=== PATIENT | female | born 2000 | race American Indian/Alaskan Native ===

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

== ENCOUNTER 2021-01-16 16:53 | Inpatient (IN) | payer MEDICAID ==
[2021-01-16] MEDS ORDERED: FAMOTIDINE 20 MG/2 ML INJ IV ONE (18:22)
[2021-01-16] MEDS ORDERED: ONDANSETRON 4 MG/2 ML INJ IV ONE (18:22)
[2021-01-16] MEDS ORDERED: DICYCLOMINE 20 MG/2 ML INJ IM ONE (18:22)
[2021-01-16] MEDS ORDERED: SODIUM CHLORIDE 0.9% 1000 ML 1,000 ML IV ONE ×3 (18:22→19:07)
[2021-01-16 18:51] LABS: Basophils # (Auto) 0.1 K/mm3 (0.0-0.1); Basophils % (Auto) 0.5 % (0.0-1.8); Hematocrit 40.5 % (30.3-42.9); Hemoglobin 13.7 gm/dl (10.1-14.3); Lymphocytes # (Auto) 2.9 K/mm3 (1.2-5.4); Mean Corpuscular HGB Conc 34 % (30-34); Mean Corpuscular Volume 101 fl (79-97); Monocytes # (Auto) 0.8 K/mm3 (0.0-0.8); Platelet Count 464 K/mm3 (140-440); Red Blood Count 4.03 M/mm3 (3.65-5.03)
[2021-01-16] MEDS ORDERED: DEXTROSE 50% IN WATER (25GM) 50 ML SYRINGE IV PRN (19:07)
[2021-01-16 19:19] LABS: Calcium 9.9 mg/dL (8.4-10.2)
--- NOTE | 2021-01-16 19:45 | Emergency Department Report ---
ED N/V/D HPI - General Chief complaint: Abdominal Pain Stated complaint: HIGH BLOOD SUGAR Time Seen by Provider: 01/16/21 18:20 Source: patient Mode of arrival: Stretcher Limitations: No Limitations - History of Present Illness Initial comments: Patient is a 20-year-old F [place] female with past medical history of insulin- dependent diabetes who is presenting with likely DKA. Patient states that she has not been taking her insulin as prescribed. States for the last 24 hours she is had fatigue nausea vomiting and abdominal cramps. Patient has vomited multiple times. Blood sugar read high at home. Denies any cough cold congestion fevers or chills. Patient has been in DKA before - Related Data Home Medications Medication Instructions Recorded Confirmed Last Taken Insulin Aspart Protam & Aspart 25 units SQ QPM 02/02/19 02/02/19 02/02/19 [NovoLOG Mix 70-30 Flexpen] Insulin Lispro Protamin/Lispro 34 units SQ QAM 02/02/19 02/02/19 02/01/19 [HumaLOG Mix 75-25 Kwikpen] lisinopriL [Zestril TAB] 10 mg PO QDAY 02/02/19 02/02/19 02/01/19 Allergies Allergy/AdvReac Type Severity Reaction Status Date / Time No Known Allergies Allergy Unverified 02/02/19 16:14 ED Review of Systems ROS: Stated complaint: HIGH BLOOD SUGAR Other details as noted in HPI Comment: All other systems reviewed and negative ED Past Medical Hx - Past Medical History Hx Hypertension: Yes Hx Diabetes: Yes Hx Asthma: No - Social History Smoking Status: Never Smoker - Medications Home Medications: Home Medications Medication Instructions Recorded Confirmed Last Taken Type Insulin Aspart Protam & Aspart 25 units SQ QPM 02/02/19 02/02/19 02/02/19 History [NovoLOG Mix 70-30 Flexpen] Insulin Lispro Protamin/Lispro 34 units SQ QAM 02/02/19 02/02/19 02/01/19 History [HumaLOG Mix 75-25 Kwikpen] lisinopriL [Zestril TAB] 10 mg PO QDAY 02/02/19 02/02/19 02/01/19 History ED Physical Exam - General Limitations: No Limitations General appearance: alert, other (Ill-appearing) - Head Head exam: Present: atraumatic, normocephalic - Eye Eye exam: Present: normal appearance, PERRL, EOMI - ENT ENT exam: Present: mucous membranes dry - Neck Neck exam: Present: normal inspection - Respiratory Respiratory exam: Present: normal lung sounds bilaterally. Absent: respiratory distress, wheezes, rales, rhonchi - Cardiovascular Cardiovascular Exam: Present: normal rhythm, tachycardia. Absent: systolic murmur, diastolic murmur, rubs, gallop - GI/Abdominal GI/Abdominal exam: Present: soft, tenderness (Epigastric), normal bowel sounds. Absent: distended, guarding, rebound, rigid - Extremities Exam Extremities exam: Present: normal inspection - Back Exam Back exam: Present: normal inspection - Neurological Exam Neurological exam: Present: alert, oriented X3 - Psychiatric Psychiatric exam: Present: normal affect, normal mood - Skin Skin exam: Present: warm, dry, intact, normal color. Absent: rash ED Course Vital Signs 01/16/21 01/16/21 01/16/21 17:34 18:03 18:28 Temperature 98.6 F 98.9 F 98.3 F Pulse Rate 126 H 129 H 132 H Respiratory 18 100 H 17 Rate Blood Pressure 134/88 120/80 136/92 [Left] O2 Sat by Pulse 99 100 Oximetry 01/16/21 19:32 Temperature Pulse Rate Respiratory 16 Rate Blood Pressure [Left] O2 Sat by Pulse 100 Oximetry ED Medical Decision Making - Lab Data Result diagrams: 01/16/21 18:28 01/16/21 18:28 Lab Results 01/16/21 01/16/21 01/16/21 Range/Units 17:30 18:12 18:28 WBC 13.0 H (4.5-11.0) K/mm3 RBC 4.03 (3.65-5.03) M/mm3 Hgb 13.7 (10.1-14.3) gm/dl Hct 40.5 (30.3-42.9) % MCV 101 H (79-97) fl MCH 34 H (28-32) pg MCHC 34 (30-34) % RDW 13.0 L (13.2-15.2) % Plt Count 464 H (140-440) K/mm3 Lymph % (Auto) 22.0 (13.4-35.0) % Yell % (Auto) 6.0 (0.0-7.3) % Eos % (Auto) 0.0 (0.0-4.3) % Baso % (Auto) 0.5 (0.0-1.8) % Lymph # (Auto) 2.9 (1.2-5.4) K/mm3 Yell # (Auto) 0.8 (0.0-0.8) K/mm3 Eos # (Auto) 0.0 (0.0-0.4) K/mm3 Baso # (Auto) 0.1 (0.0-0.1) K/mm3 Seg Neutrophils % 71.5 H (40.0-70.0) % Seg Neutrophils # 9.3 H (1.8-7.7) K/mm3 VBG pH (7.320-7.420) Sodium (137-145) mmol/L Potassium (3.6-5.0) mmol/L Chloride (98-107) mmol/L Carbon Dioxide (22-30) mmol/L Anion Gap mmol/L BUN (7-17) mg/dL Creatinine (0.6-1.2) mg/dL Estimated GFR ml/min BUN/Creatinine Ratio % Glucose (65-100) mg/dL POC Glucose 413 H 410 H (70-105) mg/dL Calcium (8.4-10.2) mg/dL Total Bilirubin (0.1-1.2) mg/dL AST (5-40) units/L ALT (7-56) units/L Alkaline Phosphatase (35-129) units/L Total Protein (6.3-8.2) g/dL Albumin (3.9-5) g/dL Albumin/Globulin Ratio % HCG, Qual (Negative) 01/16/21 01/16/21 01/16/21 Range/Units 18:28 18:28 18:28 WBC (4.5-11.0) K/mm3 RBC (3.65-5.03) M/mm3 Hgb (10.1-14.3) gm/dl Hct (30.3-42.9) % MCV (79-97) fl MCH (28-32) pg MCHC (30-34) % RDW (13.2-15.2) % Plt Count (140-440) K/mm3 Lymph % (Auto) (13.4-35.0) % Yell % (Auto) (0.0-7.3) % Eos % (Auto) (0.0-4.3) % Baso % (Auto) (0.0-1.8) % Lymph # (Auto) (1.2-5.4) K/mm3 Yell # (Auto) (0.0-0.8) K/mm3 Eos # (Auto) (0.0-0.4) K/mm3 Baso # (Auto) (0.0-0.1) K/mm3 Seg Neutrophils % (40.0-70.0) % Seg Neutrophils # (1.8-7.7) K/mm3 VBG pH 7.187 L* (7.320-7.420) Sodium 140 (137-145) mmol/L Potassium 5.8 H (3.6-5.0) mmol/L Chloride 100.4 (98-107) mmol/L Carbon Dioxide 7 L* (22-30) mmol/L Anion Gap 38 mmol/L BUN 26 H (7-17) mg/dL Creatinine 1.5 H (0.6-1.2) mg/dL Estimated GFR 54 ml/min BUN/Creatinine Ratio 17 % Glucose 450 H (65-100) mg/dL POC Glucose (70-105) mg/dL Calcium 9.9 (8.4-10.2) mg/dL Total Bilirubin 0.30 (0.1-1.2) mg/dL AST 11 (5-40) units/L ALT 17 (7-56) units/L Alkaline Phosphatase 101 (35-129) units/L Total Protein 9.0 H (6.3-8.2) g/dL Albumin 4.0 (3.9-5) g/dL Albumin/Globulin Ratio 0.8 % HCG, Qual Negative (Negative) - Medical Decision Making Patient is a 20-year-old F [place] female who is presenting with DKA. Patient has a bicarb of 7 and a pH of 7.18. Patient started on insulin drip and will be admitted to the ICU. In the emergency department 3 L of IV fluids have been ordered initially. Critical Care Time: Yes (30) Critical care attestation.: If time is entered above; I have spent that time in minutes in the direct care of this critically ill patient, excluding procedure time. ED Disposition Clinical Impression: DKA (diabetic ketoacidoses) Disposition: 09 ADMITTED INPATIENT Is pt being admited?: Yes Does the pt Need Aspirin: No Condition: Stable Instructions: Abdominal Pain (ED), Diabetic Ketoacidosis (ED) Time of Disposition: 19:48
[2021-01-16 19:57] LABS: Calcium 9.7 mg/dL (8.4-10.2)
[2021-01-16] MEDS ORDERED: INSULIN REGULAR, HUMAN 100 UNITS in SODIUM CHLORIDE 0.9% 99 ML IV SCH ×2 (20:00→22:00)
[2021-01-16] MEDS ORDERED: SODIUM CHLORIDE 0.9% 1000 ML 1,000 ML IV SCH (20:00)
[2021-01-16 20:19] LABS: Bilirubin,Urine NEG (Negative); Blood,Urine MOD (Negative); Color,Urine Straw (Yellow); Hyaline Casts,Urine 1 /LPF; Mucus,Urine FEW /HPF; Urobilinogen,Urine < 2.0 mg/dL (<2.0)
[2021-01-16] MEDS ORDERED: MORPHINE 2 MG/1 ML INJ IV PRN (21:32)
[2021-01-16] MEDS ORDERED: ACETAMINOPHEN 325 MG TAB PO PRN (21:32)
[2021-01-16] MEDS ORDERED: ONDANSETRON 4 MG/2 ML INJ IV PRN (21:32)
[2021-01-16] MEDS ORDERED: HYDROmorphone 1 MG/1 ML INJ IV PRN (21:32)
[2021-01-16] MEDS ORDERED: METOCLOPRAMIDE 10 MG/2 ML INJ IV PRN (21:32)
[2021-01-16] MEDS ORDERED: POTASSIUM CHLORIDE 10 MEQ 10 MEQ/100 ML BAG IV SCH ×2 (22:00)
[2021-01-16] MEDS ORDERED: D5W/0.45% NACL/KCL 20 MEQ 20 MEQ/1,000 ML BAG IV SCH (22:00)
[2021-01-16] MEDS ORDERED: FAMOTIDINE 20 MG/2 ML INJ IV SCH (22:00)
[2021-01-17 00:44] LABS: BUN/Creatinine Ratio 17; Blood Urea Nitrogen 22 mg/dL (7-17); Calcium 9.3 mg/dL (8.4-10.2); Hemolysis Index 5
[2021-01-17] MEDS ORDERED: D5W/0.45% NACL 1,000 ML IV ONE (03:33)
[2021-01-17] MEDS ORDERED: D5W/0.45% NACL 1,000 ML IV SCH (04:00)
[2021-01-17 05:49] LABS: BUN/Creatinine Ratio 15; Blood Urea Nitrogen 20 mg/dL (7-17); Calcium 9.4 mg/dL (8.4-10.2); Hemolysis Index 70
--- NOTE | 2021-01-17 05:59 | History and Physical Report ---
History of Present Illness Date of examination: 01/16/21 Date of admission: 01/16/21 19:49 Chief complaint: Nausea and vomiting for 2 days History of present illness: 20-year-old -German female with history of type 1 diabetes comes in for high blood glucose levels and nausea and vomiting. Also abdominal cramps. Patient has not been taking her insulin regularly. Patient is very poor historian. Slightly altered sensorium. No fever or chills. No dysuria. No exposure to Covid virus. - Past Medical History --Hypertension: Yes --Diabetes: Yes surgical history -No family history - Htn - Social History Smoking Status: Never Smoker - Medications Home Medications: Home Medications Medication Instructions Recorded Confirmed Last Taken Type Insulin Aspart Protam & Aspart 25 units SQ QPM 02/02/19 02/02/19 02/02/19 History [NovoLOG Mix 70-30 Flexpen] Insulin Lispro Protamin/Lispro 34 units SQ QAM 02/02/19 02/02/19 02/01/19 History [HumaLOG Mix 75-25 Kwikpen] lisinopriL [Zestril TAB] 10 mg PO QDAY 02/02/19 02/02/19 02/01/19 History Review of Systems ROS: Constitutional vomiting multiple times HEENT no sore throat no post nasal drip no diplopia Neck no neck stiffness no lymph gland enlargement Chest and lungs no shortness of breath cough or wheezing CVS no chest pain no diaphoresis no palpitations GI nausea and vomiting for 2 days, abdominal cramps Genitourinary system no dysuria no flank pain Musculoskeletal system no muscle pains no joint pains MEDICAL RECORDS COORDINATOR no syncope no seizures Skin no rash no itching Psychiatric no depression no homicidal or suicidal tendencies Hematologic no lymphedema or bruising Endocrine no polydipsia no polyuria no cold intolerance no heat intolerance Medications and Allergies Allergies Allergy/AdvReac Type Severity Reaction Status Date / Time No Known Allergies Allergy Unverified 02/02/19 16:14 Home Medications Medication Instructions Recorded Confirmed Last Taken Type Insulin Aspart Protam & Aspart 25 units SQ QPM 02/02/19 02/02/19 02/02/19 History [NovoLOG Mix 70-30 Flexpen] Insulin Lispro Protamin/Lispro 34 units SQ QAM 02/02/19 02/02/19 02/01/19 History [HumaLOG Mix 75-25 Kwikpen] lisinopriL [Zestril TAB] 10 mg PO QDAY 02/02/19 02/02/19 02/01/19 History Active Meds: Active Medications Acetaminophen (Acetaminophen 325 Mg Tab) 650 mg PO Q4H PRN PRN Reason: Pain MILD(1-3)/Fever >100.5/RODRIGUEZ Dextrose (Dextrose 50% In Water (25gm) 50 Ml Syringe) 0 ml IV Q30MIN PRN; Protocol PRN Reason: Hypoglycemia Famotidine (Famotidine 20 Mg/2 Ml Inj) 20 mg IV DAILY ANA Hydromorphone HCl (Hydromorphone 1 Mg/1 Ml Inj) 0.5 mg IV Q3H PRN PRN Reason: Pain , Severe (7-10) Sodium Chloride (Nacl 0.9% 1000 Ml) 1,000 mls @ 250 mls/hr IV DIRECT ANA Last Admin: 01/16/21 20:10 Dose: 250 mls/hr Documented by: Insulin Human Regular 100 (units/ Sodium Chloride) 100 mls @ 1 mls/hr IV TITR ANA; Protocol Last Titration: 01/17/21 05:10 Dose: 4 units/hr, 4 mls/hr Documented by: Dextrose/Sodium Chloride (D5/0.45ns) 1,000 mls @ 125 mls/hr IV DIRECT ANA Metoclopramide HCl (Metoclopramide 10 Mg/2 Ml Inj) 10 mg IV Q6H PRN PRN Reason: Nausea And Vomiting Morphine Sulfate (Morphine 2 Mg/1 Ml Inj) 2 mg IV Q4H PRN PRN Reason: Pain, Moderate (4-6) Last Admin: 01/17/21 05:11 Dose: 2 mg Documented by: Ondansetron HCl (Ondansetron 4 Mg/2 Ml Inj) 4 mg IV Q3H PRN PRN Reason: Nausea And Vomiting Sodium Chloride (Sodium Chloride 0.9% 10 Ml Flush Syringe) 10 ml IV BID ANA Sodium Chloride (Sodium Chloride 0.9% 10 Ml Flush Syringe) 10 ml IV PRN PRN PRN Reason: LINE FLUSH Exam - Constitutional Vitals: Temp Pulse Resp BP Pulse Ox 98.6 F 127 H 10 L 135/92 100 01/17/21 04:00 01/17/21 04:00 01/17/21 05:41 01/17/21 04:00 01/17/21 04:00 General appearance: Present: mild distress, well-nourished - EENT Eyes: Present: PERRL ENT: hearing intact, clear oral mucosa, other (Dry mucous membranes) - Neck Neck: Present: supple, normal ROM - Respiratory Respiratory effort: normal Respiratory: bilateral: CTA - Cardiovascular Heart rate: 78 Rhythm: regular Heart Sounds: Present: S1 & S2. Absent: rub, click - Extremities Extremities: no ischemia, pulses intact, pulses symmetrical, No edema Peripheral Pulses: within normal limits - Abdominal General gastrointestinal: Present: soft, non-tender, non-distended, normal bowel sounds Female genitourinary: Present: normal - Rectal Rectal Exam: deferred - Integumentary Integumentary: Present: clear, warm, dry - Musculoskeletal Musculoskeletal: gait normal, strength equal bilaterally - Psychiatric Psychiatric: appropriate mood/affect, intact judgment & insight - Neurologic Neurologic: CNII-XII intact, moves all extremities - Allied Health Allied health notes reviewed: nursing, case management Results - Labs CBC & Chem 7: 01/16/21 18:28 01/17/21 04:53 Labs: Laboratory Last Values WBC 13.0 K/mm3 (4.5-11.0) H 01/16/21 18:28 RBC 4.03 M/mm3 (3.65-5.03) 01/16/21 18:28 Hgb 13.7 gm/dl (10.1-14.3) 01/16/21 18:28 Hct 40.5 % (30.3-42.9) 01/16/21 18:28 MCV 101 fl (79-97) H 01/16/21 18:28 MCH 34 pg (28-32) H 01/16/21 18:28 MCHC 34 % (30-34) 01/16/21 18:28 RDW 13.0 % (13.2-15.2) L 01/16/21 18:28 Plt Count 464 K/mm3 (140-440) H 01/16/21 18:28 Lymph % (Auto) 22.0 % (13.4-35.0) 01/16/21 18:28 [place] % (Auto) 6.0 % (0.0-7.3) 01/16/21 18:28 Eos % (Auto) 0.0 % (0.0-4.3) 01/16/21 18:28 Baso % (Auto) 0.5 % (0.0-1.8) 01/16/21 18:28 Lymph # (Auto) 2.9 K/mm3 (1.2-5.4) 01/16/21 18:28 [place] # (Auto) 0.8 K/mm3 (0.0-0.8) 01/16/21 18:28 Eos # (Auto) 0.0 K/mm3 (0.0-0.4) 01/16/21 18:28 Baso # (Auto) 0.1 K/mm3 (0.0-0.1) 01/16/21 18:28 Seg Neutrophils % 71.5 % (40.0-70.0) H 01/16/21 18:28 Seg Neutrophils # 9.3 K/mm3 (1.8-7.7) H 01/16/21 18:28 VBG pH 7.187 (7.320-7.420) L* 01/16/21 18:28 Sodium 149 mmol/L (137-145) H 01/17/21 04:53 Potassium 4.4 mmol/L (3.6-5.0) 01/17/21 04:53 Chloride 115.1 mmol/L (98-107) H 01/17/21 04:53 Carbon Dioxide 14 mmol/L (22-30) L 01/17/21 04:53 Anion Gap 24 mmol/L 01/17/21 04:53 BUN 20 mg/dL (7-17) H 01/17/21 04:53 Creatinine 1.3 mg/dL (0.6-1.2) H 01/17/21 04:53 Estimated GFR > 60 ml/min 01/17/21 04:53 BUN/Creatinine Ratio 15 % 01/17/21 04:53 Glucose 202 mg/dL (65-100) H 01/17/21 04:53 POC Glucose 186 mg/dL (70-105) H 01/17/21 05:15 Hemoglobin A1c 18.1 % (4-6) H 01/16/21 23:16 Calcium 9.4 mg/dL (8.4-10.2) 01/17/21 04:53 Phosphorus 4.00 mg/dL (2.5-4.5) 01/16/21 23:16 Magnesium 2.40 mg/dL (1.7-2.3) H 01/16/21 23:16 Total Bilirubin 0.30 mg/dL (0.1-1.2) 01/16/21 18:28 AST 11 units/L (5-40) 01/16/21 18:28 ALT 17 units/L (7-56) 01/16/21 18:28 Alkaline Phosphatase 101 units/L (35-129) 01/16/21 18:28 Total Protein 9.0 g/dL (6.3-8.2) H 01/16/21 18:28 Albumin 4.0 g/dL (3.9-5) 01/16/21 18:28 Albumin/Globulin Ratio 0.8 % 01/16/21 18:28 HCG, Qual Negative (Negative) 01/16/21 18:28 Urine Color Straw (Yellow) 01/16/21 Unknown Urine Turbidity Clear (Clear) 01/16/21 Unknown Urine pH 5.0 (5.0-7.0) 01/16/21 Unknown Ur Specific [place] 1.018 (1.003-1.030) 01/16/21 Unknown Urine Protein 100 mg/dl mg/dL (Negative) 01/16/21 Unknown Urine Glucose (UA) >=500 mg/dL (Negative) 01/16/21 Unknown Urine Ketones 80 mg/dL (Negative) 01/16/21 Unknown Urine Blood Mod (Negative) 01/16/21 Unknown Urine Nitrite Neg (Negative) 01/16/21 Unknown Urine Bilirubin Neg (Negative) 01/16/21 Unknown Urine Urobilinogen < 2.0 mg/dL (<2.0) 01/16/21 Unknown Ur Leukocyte Esterase Neg (Negative) 01/16/21 Unknown Urine WBC (Auto) 7.0 /HPF (0.0-6.0) H 01/16/21 Unknown Urine RBC (Auto) 9.0 /HPF (0.0-6.0) 01/16/21 Unknown U Epithel Cells (Auto) 1.0 /HPF (0-13.0) 01/16/21 Unknown Hyaline Casts 1 /LPF 01/16/21 Unknown Urine Mucus Few /HPF 01/16/21 Unknown Urine Yeast (Budding) Few /HPF 01/16/21 Unknown Short CBC 01/16/21 Range/Units 18:28 WBC 13.0 H (4.5-11.0) K/mm3 Hgb 13.7 (10.1-14.3) gm/dl Hct 40.5 (30.3-42.9) % Plt Count 464 H (140-440) K/mm3 BMP 01/16/21 01/16/21 01/16/21 18:28 19:22 23:16 Sodium 140 143 145 Potassium 5.8 H 5.1 H 4.9 Chloride 100.4 103.3 107.1 H Carbon Dioxide 7 L* 7 L* 9 L* BUN 26 H 25 H 22 H Creatinine 1.5 H 1.5 H 1.3 H Glucose 450 H 424 H 357 H Calcium 9.9 9.7 9.3 01/17/21 04:53 Sodium 149 H Potassium 4.4 Chloride 115.1 H Carbon Dioxide 14 L BUN 20 H Creatinine 1.3 H Glucose 202 H Calcium 9.4 Liver Function 01/16/21 Range/Units 18:28 Total Bilirubin 0.30 (0.1-1.2) mg/dL AST 11 (5-40) units/L ALT 17 (7-56) units/L Alkaline Phosphatase 101 (35-129) units/L Albumin 4.0 (3.9-5) g/dL Urine 01/16/21 Range/Units Unknown Urine Color Straw (Yellow) Urine pH 5.0 (5.0-7.0) Ur Specific [place] 1.018 (1.003-1.030) Urine Protein 100 mg/dl (Negative) mg/dL Urine Glucose (UA) >=500 (Negative) mg/dL Assessment and Plan Assessment and plan: Critical care statement The high probability OF a clinically significant sudden or life-threatening deterioration of the cardiorespiratory system and endocrine system required my full and direct attention, intervention and postoperative management. The aggregate critical care time was 40 minutes. The time is in addition to time spent performing reported procedures but includes the followin: Data review and interpretation 2: Patient assessment and monitoring of vital signs 3: Documentation 4:: Medication orders and management Advance Directives: Yes (Full code) Plan of care discussed with patient/family: Yes - Patient Problems (1) DKA (diabetic ketoacidoses) Current Visit: Yes Status: Acute Qualifiers: Diabetes mellitus type: type 1 Diabetes mellitus complication detail: without coma Qualified Code(s): E10.10 - Type 1 diabetes mellitus with ketoacidosis without coma Plan to address problem: Patient initiated on DKA protocol IV insulin and IV fluids for now Dietitian consult for diet education Resume home insulin and then adjust insulin dosage (2) Metabolic acidosis Current Visit: Yes Status: Acute Plan to address problem: Severe Sodium bicarbonate intermittently (3) Hyperkalemia Current Visit: Yes Status: Acute Plan to address problem: Should correct with correction of blood glucose levels (4) WARREN (acute kidney injury) Current Visit: Yes Status: Acute Plan to address problem: Secondary to vasomotor nephropathy IV fluids for now Nephrology consult if necessary (5) DVT prophylaxis Current Visit: Yes Status: Acute Plan to address problem: On heparin and GI prophylaxis
--- NOTE | 2021-01-17 11:40 | Consultation ---
History of Present Illness - Reason for Consult Consult date: 01/17/21 DKA - History of Present Illness 20 yo female, followed by [facility] admitted with DKA. Hospitalized last year for the same thing but not here. Takes 75/25 50 in the morning and 40 at night. Per patient not sure what happened as she has been taking her medications. Per patient feels better but anion gap is still not closed. Also not hungry yet. Remainder is negative. Past History Past Medical History: diabetes Medications and Allergies Allergies Allergy/AdvReac Type Severity Reaction Status Date / Time No Known Allergies Allergy Unverified 02/02/19 16:14 Home Medications Medication Instructions Recorded Confirmed Last Taken Type Insulin Aspart Protam & Aspart 25 units SQ QPM 02/02/19 02/02/19 02/02/19 History [NovoLOG Mix 70-30 Flexpen] Insulin Lispro Protamin/Lispro 34 units SQ QAM 02/02/19 02/02/19 02/01/19 History [HumaLOG Mix 75-25 Kwikpen] lisinopriL [Zestril TAB] 10 mg PO QDAY 02/02/19 02/02/19 02/01/19 History Active Meds: Active Medications Acetaminophen (Acetaminophen 325 Mg Tab) 650 mg PO Q4H PRN PRN Reason: Pain MILD(1-3)/Fever >100.5/RODRIGUEZ Dextrose (Dextrose 50% In Water (25gm) 50 Ml Syringe) 0 ml IV Q30MIN PRN; Protocol PRN Reason: Hypoglycemia Famotidine (Famotidine 20 Mg/2 Ml Inj) 20 mg IV DAILY ANA Hydromorphone HCl (Hydromorphone 1 Mg/1 Ml Inj) 0.5 mg IV Q3H PRN PRN Reason: Pain , Severe (7-10) Sodium Chloride (Nacl 0.9% 1000 Ml) 1,000 mls @ 250 mls/hr IV DIRECT ANA Last Admin: 01/16/21 20:10 Dose: 250 mls/hr Documented by: Insulin Human Regular 100 (units/ Sodium Chloride) 100 mls @ 1 mls/hr IV TITR ANA; Protocol Last Titration: 01/17/21 10:11 Dose: 2 units/hr, 2 mls/hr Documented by: Dextrose/Sodium Chloride (D5/0.45ns) 1,000 mls @ 125 mls/hr IV DIRECT ANA Metoclopramide HCl (Metoclopramide 10 Mg/2 Ml Inj) 10 mg IV Q6H PRN PRN Reason: Nausea And Vomiting Morphine Sulfate (Morphine 2 Mg/1 Ml Inj) 2 mg IV Q4H PRN PRN Reason: Pain, Moderate (4-6) Last Admin: 01/17/21 05:11 Dose: 2 mg Documented by: Ondansetron HCl (Ondansetron 4 Mg/2 Ml Inj) 4 mg IV Q3H PRN PRN Reason: Nausea And Vomiting Sodium Chloride (Sodium Chloride 0.9% 10 Ml Flush Syringe) 10 ml IV BID ANA Sodium Chloride (Sodium Chloride 0.9% 10 Ml Flush Syringe) 10 ml IV PRN PRN PRN Reason: LINE FLUSH Review of Systems All systems: negative Exam - Constitutional Vitals: Temp Pulse Resp BP Pulse Ox 100.4 F H 116 H 9 L 139/95 100 01/17/21 07:56 01/17/21 09:00 01/17/21 09:00 01/17/21 09:00 01/17/21 09:00 General appearance: Present: no acute distress - EENT Eyes: Present: PERRL, EOM intact ENT: hearing intact, clear oral mucosa, dentition normal - Neck Neck: Present: supple, normal ROM - Respiratory Respiratory effort: normal Respiratory: bilateral: CTA - Cardiovascular Rhythm: regular Heart Sounds: Present: S1 & S2 - Extremities Extremities: no ischemia - Abdominal General gastrointestinal: Present: soft, non-tender, normal bowel sounds Results - Labs CBC & Chem 7: 01/16/21 18:28 01/17/21 04:53 Labs: Abnormal lab results 01/16/21 01/16/21 01/16/21 Range/Units 17:30 18:12 18:28 WBC 13.0 H (4.5-11.0) K/mm3 MCV 101 H (79-97) fl MCH 34 H (28-32) pg RDW 13.0 L (13.2-15.2) % Plt Count 464 H (140-440) K/mm3 Seg Neutrophils % 71.5 H (40.0-70.0) % Seg Neutrophils # 9.3 H (1.8-7.7) K/mm3 VBG pH (7.320-7.420) Sodium (137-145) mmol/L Potassium (3.6-5.0) mmol/L Chloride (98-107) mmol/L Carbon Dioxide (22-30) mmol/L BUN (7-17) mg/dL Creatinine (0.6-1.2) mg/dL Glucose (65-100) mg/dL POC Glucose 413 H 410 H (70-105) mg/dL Hemoglobin A1c (4-6) % Phosphorus (2.5-4.5) mg/dL Magnesium (1.7-2.3) mg/dL Total Protein (6.3-8.2) g/dL Urine WBC (Auto) (0.0-6.0) /HPF 01/16/21 01/16/21 01/16/21 Range/Units 18:28 18:28 19:22 WBC (4.5-11.0) K/mm3 MCV (79-97) fl MCH (28-32) pg RDW (13.2-15.2) % Plt Count (140-440) K/mm3 Seg Neutrophils % (40.0-70.0) % Seg Neutrophils # (1.8-7.7) K/mm3 VBG pH 7.187 L* (7.320-7.420) Sodium (137-145) mmol/L Potassium 5.8 H (3.6-5.0) mmol/L Chloride (98-107) mmol/L Carbon Dioxide 7 L* (22-30) mmol/L BUN 26 H (7-17) mg/dL Creatinine 1.5 H (0.6-1.2) mg/dL Glucose 450 H (65-100) mg/dL POC Glucose (70-105) mg/dL Hemoglobin A1c (4-6) % Phosphorus 4.70 H (2.5-4.5) mg/dL Magnesium 2.40 H (1.7-2.3) mg/dL Total Protein 9.0 H (6.3-8.2) g/dL Urine WBC (Auto) (0.0-6.0) /HPF 01/16/21 01/16/21 01/16/21 Range/Units 19:22 20:09 21:11 WBC (4.5-11.0) K/mm3 MCV (79-97) fl MCH (28-32) pg RDW (13.2-15.2) % Plt Count (140-440) K/mm3 Seg Neutrophils % (40.0-70.0) % Seg Neutrophils # (1.8-7.7) K/mm3 VBG pH (7.320-7.420) Sodium (137-145) mmol/L Potassium 5.1 H (3.6-5.0) mmol/L Chloride (98-107) mmol/L Carbon Dioxide 7 L* (22-30) mmol/L BUN 25 H (7-17) mg/dL Creatinine 1.5 H (0.6-1.2) mg/dL Glucose 424 H (65-100) mg/dL POC Glucose 367 H 367 H (70-105) mg/dL Hemoglobin A1c (4-6) % Phosphorus (2.5-4.5) mg/dL Magnesium (1.7-2.3) mg/dL Total Protein (6.3-8.2) g/dL Urine WBC (Auto) (0.0-6.0) /HPF 01/16/21 01/16/21 01/16/21 Range/Units 22:39 23:16 23:16 WBC (4.5-11.0) K/mm3 MCV (79-97) fl MCH (28-32) pg RDW (13.2-15.2) % Plt Count (140-440) K/mm3 Seg Neutrophils % (40.0-70.0) % Seg Neutrophils # (1.8-7.7) K/mm3 VBG pH (7.320-7.420) Sodium (137-145) mmol/L Potassium (3.6-5.0) mmol/L Chloride 107.1 H (98-107) mmol/L Carbon Dioxide 9 L* (22-30) mmol/L BUN 22 H (7-17) mg/dL Creatinine 1.3 H (0.6-1.2) mg/dL Glucose 357 H (65-100) mg/dL POC Glucose 332 H (70-105) mg/dL Hemoglobin A1c 18.1 H (4-6) % Phosphorus (2.5-4.5) mg/dL Magnesium (1.7-2.3) mg/dL Total Protein (6.3-8.2) g/dL Urine WBC (Auto) (0.0-6.0) /HPF 01/16/21 01/16/21 01/16/21 Range/Units 23:16 23:28 Unknown WBC (4.5-11.0) K/mm3 MCV (79-97) fl MCH (28-32) pg RDW (13.2-15.2) % Plt Count (140-440) K/mm3 Seg Neutrophils % (40.0-70.0) % Seg Neutrophils # (1.8-7.7) K/mm3 VBG pH (7.320-7.420) Sodium (137-145) mmol/L Potassium (3.6-5.0) mmol/L Chloride (98-107) mmol/L Carbon Dioxide (22-30) mmol/L BUN (7-17) mg/dL Creatinine (0.6-1.2) mg/dL Glucose (65-100) mg/dL POC Glucose 361 H (70-105) mg/dL Hemoglobin A1c (4-6) % Phosphorus (2.5-4.5) mg/dL Magnesium 2.40 H (1.7-2.3) mg/dL Total Protein (6.3-8.2) g/dL Urine WBC (Auto) 7.0 H (0.0-6.0) /HPF 01/17/21 01/17/21 01/17/21 Range/Units 00:08 01:22 02:21 WBC (4.5-11.0) K/mm3 MCV (79-97) fl MCH (28-32) pg RDW (13.2-15.2) % Plt Count (140-440) K/mm3 Seg Neutrophils % (40.0-70.0) % Seg Neutrophils # (1.8-7.7) K/mm3 VBG pH (7.320-7.420) Sodium (137-145) mmol/L Potassium (3.6-5.0) mmol/L Chloride (98-107) mmol/L Carbon Dioxide (22-30) mmol/L BUN (7-17) mg/dL Creatinine (0.6-1.2) mg/dL Glucose (65-100) mg/dL POC Glucose 353 H 274 H 241 H (70-105) mg/dL Hemoglobin A1c (4-6) % Phosphorus (2.5-4.5) mg/dL Magnesium (1.7-2.3) mg/dL Total Protein (6.3-8.2) g/dL Urine WBC (Auto) (0.0-6.0) /HPF 01/17/21 01/17/21 01/17/21 Range/Units 03:06 04:21 04:53 WBC (4.5-11.0) K/mm3 MCV (79-97) fl MCH (28-32) pg RDW (13.2-15.2) % Plt Count (140-440) K/mm3 Seg Neutrophils % (40.0-70.0) % Seg Neutrophils # (1.8-7.7) K/mm3 VBG pH (7.320-7.420) Sodium 149 H (137-145) mmol/L Potassium (3.6-5.0) mmol/L Chloride 115.1 H (98-107) mmol/L Carbon Dioxide 14 L (22-30) mmol/L BUN 20 H (7-17) mg/dL Creatinine 1.3 H (0.6-1.2) mg/dL Glucose 202 H (65-100) mg/dL POC Glucose 240 H 201 H (70-105) mg/dL Hemoglobin A1c (4-6) % Phosphorus (2.5-4.5) mg/dL Magnesium (1.7-2.3) mg/dL Total Protein (6.3-8.2) g/dL Urine WBC (Auto) (0.0-6.0) /HPF 01/17/21 01/17/21 01/17/21 Range/Units 05:15 06:07 07:21 WBC (4.5-11.0) K/mm3 MCV (79-97) fl MCH (28-32) pg RDW (13.2-15.2) % Plt Count (140-440) K/mm3 Seg Neutrophils % (40.0-70.0) % Seg Neutrophils # (1.8-7.7) K/mm3 VBG pH (7.320-7.420) Sodium (137-145) mmol/L Potassium (3.6-5.0) mmol/L Chloride (98-107) mmol/L Carbon Dioxide (22-30) mmol/L BUN (7-17) mg/dL Creatinine (0.6-1.2) mg/dL Glucose (65-100) mg/dL POC Glucose 186 H 167 H 165 H (70-105) mg/dL Hemoglobin A1c (4-6) % Phosphorus (2.5-4.5) mg/dL Magnesium (1.7-2.3) mg/dL Total Protein (6.3-8.2) g/dL Urine WBC (Auto) (0.0-6.0) /HPF 01/17/21 01/17/21 01/17/21 Range/Units 08:04 09:08 10:03 WBC (4.5-11.0) K/mm3 MCV (79-97) fl MCH (28-32) pg RDW (13.2-15.2) % Plt Count (140-440) K/mm3 Seg Neutrophils % (40.0-70.0) % Seg Neutrophils # (1.8-7.7) K/mm3 VBG pH (7.320-7.420) Sodium (137-145) mmol/L Potassium (3.6-5.0) mmol/L Chloride (98-107) mmol/L Carbon Dioxide (22-30) mmol/L BUN (7-17) mg/dL Creatinine (0.6-1.2) mg/dL Glucose (65-100) mg/dL POC Glucose 161 H 153 H 133 H (70-105) mg/dL Hemoglobin A1c (4-6) % Phosphorus (2.5-4.5) mg/dL Magnesium (1.7-2.3) mg/dL Total Protein (6.3-8.2) g/dL Urine WBC (Auto) (0.0-6.0) /HPF 01/17/21 Range/Units 11:14 WBC (4.5-11.0) K/mm3 MCV (79-97) fl MCH (28-32) pg RDW (13.2-15.2) % Plt Count (140-440) K/mm3 Seg Neutrophils % (40.0-70.0) % Seg Neutrophils # (1.8-7.7) K/mm3 VBG pH (7.320-7.420) Sodium (137-145) mmol/L Potassium (3.6-5.0) mmol/L Chloride (98-107) mmol/L Carbon Dioxide (22-30) mmol/L BUN (7-17) mg/dL Creatinine (0.6-1.2) mg/dL Glucose (65-100) mg/dL POC Glucose 142 H (70-105) mg/dL Hemoglobin A1c (4-6) % Phosphorus (2.5-4.5) mg/dL Magnesium (1.7-2.3) mg/dL Total Protein (6.3-8.2) g/dL Urine WBC (Auto) (0.0-6.0) /HPF Assessment and Plan 20 y/o female with DKA and presumptive acute renal failure. 1. q6 hour BMP's until Anion Gap closes 2. WIll change fluids to D5 with K at same rate now that sugar is less than 250 3. Continue NPO status 4. Follow up renal function 5. negative, UA does have yeast. Consider Diflucan 150 PO x2 doses, may have been cause of DKA 6. Will continue to follow as long as in unit on insulin drip. Once gap closes and can eat, administer long acting insulin and then stop insulin infusion CCt 31 minutes.
[2021-01-17] MEDS: FAMOTIDINE 20 MG/2 ML INJ IV SCH (12:54)
[2021-01-17] MEDS ORDERED: POTASSIUM CHLORIDE 20 MEQ in DEXTROSE 5% IN WATER 1,000 ML IV SCH (13:00)
[2021-01-17 13:04] LABS: BUN/Creatinine Ratio 16; Blood Urea Nitrogen 18 mg/dL (7-17); Calcium 9.5 mg/dL (8.4-10.2); Hemolysis Index 13
--- NOTE | 2021-01-17 17:44 | Progress Note ---
Assessment and Plan (1) DKA (diabetic ketoacidoses) Current Visit: Yes Status: Acute Qualifiers: Diabetes mellitus type: type 1 Diabetes mellitus complication detail: without coma Qualified Code(s): E10.10 - Type 1 diabetes mellitus with ketoacidosis without coma Plan to address problem: Patient initiated on DKA protocol IV insulin and IV fluids for now Dietitian consult for diet education Resume home insulin and then adjust insulin dosage (2) Metabolic acidosis Current Visit: Yes Status: Acute Plan to address problem: Severe Sodium bicarbonate intermittently (3) Hyperkalemia Current Visit: Yes Status: Acute Plan to address problem: Should correct with correction of blood glucose levels (4) WARREN (acute kidney injury) Current Visit: Yes Status: Acute Plan to address problem: Secondary to vasomotor nephropathy IV fluids for now Nephrology consult if necessary (5) DVT prophylaxis Current Visit: Yes Status: Acute Plan to address problem: On heparin and GI prophylaxis 01/17/21: Monitor q6 hour BMP's until Anion Gap closes, WIll change fluids to D5 with K at same rate now that sugar is less than 250. Once gap closes and can eat, will administer long acting insulin and then stop insulin infusion. follow clinically Subjective Date of service: 01/17/21 Interval history: Patient seen and examined. Medical records and medication list reviewed. No acute event overnight noted by the RN. Patient denies any chest pain or difficulty breathing. Discussed plan of care at bedside with patient. Objective - Constitutional Vitals: Vital Signs - 12hr 01/17/21 01/17/21 01/17/21 06:00 07:00 07:56 Temperature 100.4 F H Pulse Rate 120 H 114 H Pulse Rate [ From Monitor] Respiratory 10 L 12 Rate Blood Pressure 127/82 129/88 O2 Sat by Pulse 100 100 Oximetry 01/17/21 01/17/21 01/17/21 08:00 09:00 10:00 Temperature Pulse Rate 118 H 116 H 111 H Pulse Rate [ 108 H From Monitor] Respiratory 11 L 9 L 10 L Rate Blood Pressure 136/97 139/95 152/95 O2 Sat by Pulse 100 100 100 Oximetry 01/17/21 01/17/21 01/17/21 11:00 12:00 13:00 Temperature 98.2 F Pulse Rate 112 H 108 H 113 H Pulse Rate [ From Monitor] Respiratory 9 L 13 11 L Rate Blood Pressure 131/77 126/85 O2 Sat by Pulse 100 100 100 Oximetry 01/17/21 01/17/21 01/17/21 14:00 15:00 16:00 Temperature Pulse Rate 115 H Pulse Rate [ From Monitor] Respiratory 7 L Rate Blood Pressure 143/93 125/79 141/92 O2 Sat by Pulse 100 98 100 Oximetry 01/17/21 01/17/21 16:15 17:38 Temperature 98.0 F Pulse Rate Pulse Rate [ 108 H From Monitor] Respiratory Rate Blood Pressure O2 Sat by Pulse 100 Oximetry General appearance: Present: no acute distress - EENT Eyes: PERRL, EOM intact ENT: hearing intact, clear oral mucosa Ears: bilateral: normal - Neck Neck: supple, normal ROM - Respiratory Respiratory effort: normal Respiratory: bilateral: CTA - Cardiovascular Rhythm: regular Heart Sounds: Present: S1 & S2. Absent: gallop, rub Extremities: pulses intact, No edema, normal color, Full ROM - Gastrointestinal General gastrointestinal: Present: soft, non-tender, non-distended, normal bowel sounds - Integumentary Integumentary: clear, warm, dry - Musculoskeletal Musculoskeletal: 1, strength equal bilaterally - Neurologic Neurologic: moves all extremities - Psychiatric Psychiatric: memory intact, appropriate mood/affect, intact judgment & insight - Labs CBC & Chem 7: 01/16/21 18:28 01/17/21 23:17 Labs: Abnormal lab results 01/16/21 01/16/21 01/16/21 Range/Units 17:30 18:12 18:28 WBC 13.0 H (4.5-11.0) K/mm3 MCV 101 H (79-97) fl MCH 34 H (28-32) pg RDW 13.0 L (13.2-15.2) % Plt Count 464 H (140-440) K/mm3 Seg Neutrophils % 71.5 H (40.0-70.0) % Seg Neutrophils # 9.3 H (1.8-7.7) K/mm3 VBG pH (7.320-7.420) Sodium (137-145) mmol/L Potassium (3.6-5.0) mmol/L Chloride (98-107) mmol/L Carbon Dioxide (22-30) mmol/L BUN (7-17) mg/dL Creatinine (0.6-1.2) mg/dL Glucose (65-100) mg/dL POC Glucose 413 H 410 H (70-105) mg/dL Hemoglobin A1c (4-6) % Phosphorus (2.5-4.5) mg/dL Magnesium (1.7-2.3) mg/dL Total Protein (6.3-8.2) g/dL Urine WBC (Auto) (0.0-6.0) /HPF 01/16/21 01/16/21 01/16/21 Range/Units 18:28 18:28 19:22 WBC (4.5-11.0) K/mm3 MCV (79-97) fl MCH (28-32) pg RDW (13.2-15.2) % Plt Count (140-440) K/mm3 Seg Neutrophils % (40.0-70.0) % Seg Neutrophils # (1.8-7.7) K/mm3 VBG pH 7.187 L* (7.320-7.420) Sodium (137-145) mmol/L Potassium 5.8 H (3.6-5.0) mmol/L Chloride (98-107) mmol/L Carbon Dioxide 7 L* (22-30) mmol/L BUN 26 H (7-17) mg/dL Creatinine 1.5 H (0.6-1.2) mg/dL Glucose 450 H (65-100) mg/dL POC Glucose (70-105) mg/dL Hemoglobin A1c (4-6) % Phosphorus 4.70 H (2.5-4.5) mg/dL Magnesium 2.40 H (1.7-2.3) mg/dL Total Protein 9.0 H (6.3-8.2) g/dL Urine WBC (Auto) (0.0-6.0) /HPF 01/16/21 01/16/21 01/16/21 Range/Units 19:22 20:09 21:11 WBC (4.5-11.0) K/mm3 MCV (79-97) fl MCH (28-32) pg RDW (13.2-15.2) % Plt Count (140-440) K/mm3 Seg Neutrophils % (40.0-70.0) % Seg Neutrophils # (1.8-7.7) K/mm3 VBG pH (7.320-7.420) Sodium (137-145) mmol/L Potassium 5.1 H (3.6-5.0) mmol/L Chloride (98-107) mmol/L Carbon Dioxide 7 L* (22-30) mmol/L BUN 25 H (7-17) mg/dL Creatinine 1.5 H (0.6-1.2) mg/dL Glucose 424 H (65-100) mg/dL POC Glucose 367 H 367 H (70-105) mg/dL Hemoglobin A1c (4-6) % Phosphorus (2.5-4.5) mg/dL Magnesium (1.7-2.3) mg/dL Total Protein (6.3-8.2) g/dL Urine WBC (Auto) (0.0-6.0) /HPF 01/16/21 01/16/21 01/16/21 Range/Units 22:39 23:16 23:16 WBC (4.5-11.0) K/mm3 MCV (79-97) fl MCH (28-32) pg RDW (13.2-15.2) % Plt Count (140-440) K/mm3 Seg Neutrophils % (40.0-70.0) % Seg Neutrophils # (1.8-7.7) K/mm3 VBG pH (7.320-7.420) Sodium (137-145) mmol/L Potassium (3.6-5.0) mmol/L Chloride 107.1 H (98-107) mmol/L Carbon Dioxide 9 L* (22-30) mmol/L BUN 22 H (7-17) mg/dL Creatinine 1.3 H (0.6-1.2) mg/dL Glucose 357 H (65-100) mg/dL POC Glucose 332 H (70-105) mg/dL Hemoglobin A1c 18.1 H (4-6) % Phosphorus (2.5-4.5) mg/dL Magnesium (1.7-2.3) mg/dL Total Protein (6.3-8.2) g/dL Urine WBC (Auto) (0.0-6.0) /HPF 01/16/21 01/16/21 01/16/21 Range/Units 23:16 23:28 Unknown WBC (4.5-11.0) K/mm3 MCV (79-97) fl MCH (28-32) pg RDW (13.2-15.2) % Plt Count (140-440) K/mm3 Seg Neutrophils % (40.0-70.0) % Seg Neutrophils # (1.8-7.7) K/mm3 VBG pH (7.320-7.420) Sodium (137-145) mmol/L Potassium (3.6-5.0) mmol/L Chloride (98-107) mmol/L Carbon Dioxide (22-30) mmol/L BUN (7-17) mg/dL Creatinine (0.6-1.2) mg/dL Glucose (65-100) mg/dL POC Glucose 361 H (70-105) mg/dL Hemoglobin A1c (4-6) % Phosphorus (2.5-4.5) mg/dL Magnesium 2.40 H (1.7-2.3) mg/dL Total Protein (6.3-8.2) g/dL Urine WBC (Auto) 7.0 H (0.0-6.0) /HPF 01/17/21 01/17/21 01/17/21 Range/Units 00:08 01:22 02:21 WBC (4.5-11.0) K/mm3 MCV (79-97) fl MCH (28-32) pg RDW (13.2-15.2) % Plt Count (140-440) K/mm3 Seg Neutrophils % (40.0-70.0) % Seg Neutrophils # (1.8-7.7) K/mm3 VBG pH (7.320-7.420) Sodium (137-145) mmol/L Potassium (3.6-5.0) mmol/L Chloride (98-107) mmol/L Carbon Dioxide (22-30) mmol/L BUN (7-17) mg/dL Creatinine (0.6-1.2) mg/dL Glucose (65-100) mg/dL POC Glucose 353 H 274 H 241 H (70-105) mg/dL Hemoglobin A1c (4-6) % Phosphorus (2.5-4.5) mg/dL Magnesium (1.7-2.3) mg/dL Total Protein (6.3-8.2) g/dL Urine WBC (Auto) (0.0-6.0) /HPF 01/17/21 01/17/21 01/17/21 Range/Units 03:06 04:21 04:53 WBC (4.5-11.0) K/mm3 MCV (79-97) fl MCH (28-32) pg RDW (13.2-15.2) % Plt Count (140-440) K/mm3 Seg Neutrophils % (40.0-70.0) % Seg Neutrophils # (1.8-7.7) K/mm3 VBG pH (7.320-7.420) Sodium 149 H (137-145) mmol/L Potassium (3.6-5.0) mmol/L Chloride 115.1 H (98-107) mmol/L Carbon Dioxide 14 L (22-30) mmol/L BUN 20 H (7-17) mg/dL Creatinine 1.3 H (0.6-1.2) mg/dL Glucose 202 H (65-100) mg/dL POC Glucose 240 H 201 H (70-105) mg/dL Hemoglobin A1c (4-6) % Phosphorus (2.5-4.5) mg/dL Magnesium (1.7-2.3) mg/dL Total Protein (6.3-8.2) g/dL Urine WBC (Auto) (0.0-6.0) /HPF 01/17/21 01/17/21 01/17/21 Range/Units 05:15 06:07 07:21 WBC (4.5-11.0) K/mm3 MCV (79-97) fl MCH (28-32) pg RDW (13.2-15.2) % Plt Count (140-440) K/mm3 Seg Neutrophils % (40.0-70.0) % Seg Neutrophils # (1.8-7.7) K/mm3 VBG pH (7.320-7.420) Sodium (137-145) mmol/L Potassium (3.6-5.0) mmol/L Chloride (98-107) mmol/L Carbon Dioxide (22-30) mmol/L BUN (7-17) mg/dL Creatinine (0.6-1.2) mg/dL Glucose (65-100) mg/dL POC Glucose 186 H 167 H 165 H (70-105) mg/dL Hemoglobin A1c (4-6) % Phosphorus (2.5-4.5) mg/dL Magnesium (1.7-2.3) mg/dL Total Protein (6.3-8.2) g/dL Urine WBC (Auto) (0.0-6.0) /HPF 01/17/21 01/17/21 01/17/21 Range/Units 08:04 09:08 10:03 WBC (4.5-11.0) K/mm3 MCV (79-97) fl MCH (28-32) pg RDW (13.2-15.2) % Plt Count (140-440) K/mm3 Seg Neutrophils % (40.0-70.0) % Seg Neutrophils # (1.8-7.7) K/mm3 VBG pH (7.320-7.420) Sodium (137-145) mmol/L Potassium (3.6-5.0) mmol/L Chloride (98-107) mmol/L Carbon Dioxide (22-30) mmol/L BUN (7-17) mg/dL Creatinine (0.6-1.2) mg/dL Glucose (65-100) mg/dL POC Glucose 161 H 153 H 133 H (70-105) mg/dL Hemoglobin A1c (4-6) % Phosphorus (2.5-4.5) mg/dL Magnesium (1.7-2.3) mg/dL Total Protein (6.3-8.2) g/dL Urine WBC (Auto) (0.0-6.0) /HPF 01/17/21 01/17/21 01/17/21 Range/Units 11:14 11:49 12:24 WBC (4.5-11.0) K/mm3 MCV (79-97) fl MCH (28-32) pg RDW (13.2-15.2) % Plt Count (140-440) K/mm3 Seg Neutrophils % (40.0-70.0) % Seg Neutrophils # (1.8-7.7) K/mm3 VBG pH (7.320-7.420) Sodium 147 H (137-145) mmol/L Potassium (3.6-5.0) mmol/L Chloride 117.0 H (98-107) mmol/L Carbon Dioxide 15 L (22-30) mmol/L BUN 18 H (7-17) mg/dL Creatinine (0.6-1.2) mg/dL Glucose 153 H (65-100) mg/dL POC Glucose 142 H 146 H (70-105) mg/dL Hemoglobin A1c (4-6) % Phosphorus (2.5-4.5) mg/dL Magnesium (1.7-2.3) mg/dL Total Protein (6.3-8.2) g/dL Urine WBC (Auto) (0.0-6.0) /HPF 01/17/21 01/17/21 01/17/21 Range/Units 14:00 14:20 16:04 WBC (4.5-11.0) K/mm3 MCV (79-97) fl MCH (28-32) pg RDW (13.2-15.2) % Plt Count (140-440) K/mm3 Seg Neutrophils % (40.0-70.0) % Seg Neutrophils # (1.8-7.7) K/mm3 VBG pH (7.320-7.420) Sodium (137-145) mmol/L Potassium (3.6-5.0) mmol/L Chloride (98-107) mmol/L Carbon Dioxide (22-30) mmol/L BUN (7-17) mg/dL Creatinine (0.6-1.2) mg/dL Glucose (65-100) mg/dL POC Glucose 133 H 118 H 145 H (70-105) mg/dL Hemoglobin A1c (4-6) % Phosphorus (2.5-4.5) mg/dL Magnesium (1.7-2.3) mg/dL Total Protein (6.3-8.2) g/dL Urine WBC (Auto) (0.0-6.0) /HPF
[2021-01-17 19:25] LABS: BUN/Creatinine Ratio 14; Blood Urea Nitrogen 15 mg/dL (7-17); Calcium 9.2 mg/dL (8.4-10.2); Hemolysis Index 15
[2021-01-17] MEDS: INSULIN NPH/REGULAR 70/30 INJ SUB-Q SCH (22:22)
[2021-01-17 23:45] LABS: BUN/Creatinine Ratio 12; Blood Urea Nitrogen 13 mg/dL (7-17); Hemolysis Index 3
[2021-01-18] MEDS: INSULIN REGULAR, HUMAN 100 UNITS/1 ML SUB-Q SCH ×2 (00:19→05:30)
--- NOTE | 2021-01-18 08:14 | Discharge Summary ---
<SHERON ABRAHAM - Last Filed: 01/18/21 08:14> Providers - Providers Date of Admission: 01/16/21 19:49 Attending physician: SHERON ABRAHAM 01/16/21 19:45 Consult to Physician [CONS] Urgent Comment: Dr. Paiz spoke with Dr. Salgado @ 1944 Consulting Provider: VICKEY SALGADO Physician Instructions: Reason For Exam: ICU admission for DKA 01/16/21 21:34 Consult to Dietitian/Nutrition [CONS] Routine Physician Instructions: Reason For Exam: DKA Reason for Consult: Diet education Primary care physician: KILN REPAIRER Hospitalization Condition: Stable Disposition: 01 HOME / SELF CARE / HOMELESS Exam - Constitutional Vitals: Temp Pulse Resp BP Pulse Ox 98.6 F 102 H 13 114/79 100 01/18/21 07:57 01/18/21 07:00 01/18/21 07:00 01/18/21 07:00 01/18/21 04:00 Plan Follow up with: PRIMARY CAREMD [Primary Care Provider] - 7 Days <WARREN EASON - Last Filed: 04/15/21 19:18> Providers - Providers Date of Admission: 01/16/21 19:49 Attending physician: SHERON ABRAHAM 01/16/21 19:45 Consult to Physician [CONS] Urgent Comment: Dr. Paiz spoke with Dr. Salgado @ 1944 Consulting Provider: VICKEY SALGADO Physician Instructions: Reason For Exam: ICU admission for DKA 01/16/21 21:34 Consult to Dietitian/Nutrition [CONS] Routine Physician Instructions: Reason For Exam: DKA Reason for Consult: Diet education Primary care physician: KILN REPAIRER Exam - Constitutional Vitals: Temp Pulse Resp BP Pulse Ox 98.6 F 105 H 11 L 109/65 100 01/18/21 07:57 01/18/21 11:00 01/18/21 11:00 01/18/21 11:00 01/18/21 11:00
[2021-01-18] MEDS: INSULIN NPH/REGULAR 70/30 INJ SUB-Q SCH (09:32)
[2021-01-18] MEDS: FAMOTIDINE 20 MG/2 ML INJ IV SCH (09:32)
[2021-01-18 13:14] VITALS: BP 109/65
== END 2021-01-18 13:00 | disposition home or self-care (01) | DRG 637 ==
LOC: ED 16:53 → CC1 19:49
PROVIDERS: ADMIT Hospitalist; ATTEND Internal Medicine
DX: E10.10 Type 1 diabetes mellitus with ketoacidosis without coma (principal); N17.0 Acute kidney failure with tubular necrosis; I10 Essential (primary) hypertension; E87.5 Hyperkalemia; Z20.822 Contact with and (suspected) exposure to COVID-19
CPT/HCPCS: 36415; 80048; 80053; 81001; 82805; 82962; 83036; 83735; 84100; 84703; 85025; 87040; G0378; J7070; J0500; J1815; J2270; J2405; J3480; J7030

== ENCOUNTER 2021-09-23 15:31 | Inpatient (IN) | payer MEDICAID ==
[2021-09-23] MEDS ORDERED: SODIUM CHLORIDE 0.9% 1000 ML 1,000 ML IV ONE ×3 (15:56→17:41)
--- NOTE | 2021-09-23 16:00 | Emergency Department Report ---
ED General Adult HPI - General Chief complaint: Hyperglycemia Stated complaint: DKA Time Seen by Provider: 09/23/21 15:52 Source: patient, EMS Mode of arrival: Stretcher Limitations: No Limitations - History of Present Illness Initial comments: Patient presents to the emergency department via EMS for unresponsiveness. Patient was found by her family at home unresponsive. The family states the patient has a history of insulin-dependent diabetes and has not taken her insulin for at least the last 2 days. Per EMS patient's glucose was greater than 500/too high to read on their monitor. They state the patient denied any nausea or vomiting. Patient denies chest pain or shortness of breath. -: unknown Consistency: constant Improves with: none Worsens with: none Associated Symptoms: denies other symptoms Treatments Prior to Arrival: none - Related Data Home Medications Medication Instructions Recorded Confirmed Last Taken Insulin Aspart Protam & Aspart 25 units SQ QPM 02/02/19 02/02/19 02/02/19 [NovoLOG Mix 70-30 Flexpen] Insulin Lispro Protamin/Lispro 34 units SQ QAM 02/02/19 02/02/19 02/01/19 [HumaLOG Mix 75-25 Kwikpen] lisinopriL [Zestril TAB] 10 mg PO QDAY 02/02/19 02/02/19 02/01/19 Allergies Allergy/AdvReac Type Severity Reaction Status Date / Time No Known Allergies Allergy Verified 09/23/21 15:34 ED Review of Systems ROS: Stated complaint: DKA Other details as noted in HPI Comment: Unobtainable due to pts medical conditions ED Past Medical Hx - Past Medical History Hx Hypertension: Yes Hx Diabetes: Yes Hx Asthma: No - Social History Smoking Status: Never Smoker - Medications Home Medications: Home Medications Medication Instructions Recorded Confirmed Last Taken Type Insulin Aspart Protam & Aspart 25 units SQ QPM 02/02/19 02/02/19 02/02/19 History [NovoLOG Mix 70-30 Flexpen] Insulin Lispro Protamin/Lispro 34 units SQ QAM 02/02/19 02/02/19 02/01/19 History [HumaLOG Mix 75-25 Kwikpen] lisinopriL [Zestril TAB] 10 mg PO QDAY 02/02/19 02/02/19 02/01/19 History ED Physical Exam - General Limitations: No Limitations General appearance: obtunded, other (But arousable with verbal stimulation) - Head Head exam: Present: atraumatic, normocephalic - Eye Eye exam: Present: PERRL, EOMI - ENT ENT exam: Present: mucous membranes dry - Respiratory Respiratory exam: Present: normal lung sounds bilaterally, other (Kussmal respirations ). Absent: wheezes - Cardiovascular Cardiovascular Exam: Present: normal rhythm, tachycardia - GI/Abdominal GI/Abdominal exam: Present: soft, diminished bowel sounds. Absent: distended, tenderness - Extremities Exam Extremities exam: Present: normal inspection - Neurological Exam Neurological exam: Present: other (Patient is obtunded but easily arousable. Complete neurological exam cannot be done due to the patient's medical condition at time of presentation) - Psychiatric Psychiatric exam: Present: other (Not able to assess due to the patient's medical condition) ED Course Vital Signs 09/23/21 15:32 Pulse Rate 107 H Blood Pressure 113/70 [Left] O2 Sat by Pulse 99 Oximetry ED Medical Decision Making - Lab Data Result diagrams: 09/23/21 16:38 09/23/21 16:31 Lab Results 09/23/21 09/23/21 09/23/21 Range/Units 16:31 16:31 16:38 WBC 23.0 H (4.5-11.0) K/mm3 RBC 3.57 L (3.65-5.03) M/mm3 Hgb 11.0 (10.1-14.3) gm/dl Hct 36.7 (30.3-42.9) % MCV 103 H (79-97) fl MCH 31 (28-32) pg MCHC 30 (30-34) % RDW 14.1 (13.2-15.2) % Plt Count 377 (140-440) K/mm3 Sodium 127 L (137-145) mmol/L Potassium 7.5 H* (3.6-5.0) mmol/L Chloride 87.7 L (98-107) mmol/L Carbon Dioxide 2 L* (22-30) mmol/L Anion Gap 45 mmol/L BUN 41 H (7-17) mg/dL Creatinine 1.8 H (0.6-1.2) mg/dL Estimated GFR 43 ml/min BUN/Creatinine Ratio 23 % Lactic Acid 2.70 H* (0.7-2.0) mmol/L Calcium 9.3 (8.4-10.2) mg/dL Total Bilirubin 0.20 (0.1-1.2) mg/dL AST 14 (5-40) units/L ALT 8 (7-56) units/L Alkaline Phosphatase 162 H (35-129) units/L Total Protein 10.1 H (6.3-8.2) g/dL Albumin 3.5 L (3.9-5) g/dL Albumin/Globulin Ratio 0.5 % HCG, Quant (0-4) mIU/mL 09/23/21 Range/Units 16:38 WBC (4.5-11.0) K/mm3 RBC (3.65-5.03) M/mm3 Hgb (10.1-14.3) gm/dl Hct (30.3-42.9) % MCV (79-97) fl MCH (28-32) pg MCHC (30-34) % RDW (13.2-15.2) % Plt Count (140-440) K/mm3 Sodium (137-145) mmol/L Potassium (3.6-5.0) mmol/L Chloride (98-107) mmol/L Carbon Dioxide (22-30) mmol/L Anion Gap mmol/L BUN (7-17) mg/dL Creatinine (0.6-1.2) mg/dL Estimated GFR ml/min BUN/Creatinine Ratio % Lactic Acid (0.7-2.0) mmol/L Calcium (8.4-10.2) mg/dL Total Bilirubin (0.1-1.2) mg/dL AST (5-40) units/L ALT (7-56) units/L Alkaline Phosphatase (35-129) units/L Total Protein (6.3-8.2) g/dL Albumin (3.9-5) g/dL Albumin/Globulin Ratio % HCG, Quant < 2 (0-4) mIU/mL - Radiology Data Radiology results: report reviewed - Medical Decision Making 3 L IV fluid was initiated The patient's elevated potassium is likely secondary to elevated glucose levels Insulin drip initiated Insulin bolus given Patient has a white count of 23,000 and and lieu of blood cultures and lactic acid being obtained prophylactic antibiotics were initiated Patient is admitted to Dr. Montes Critical Care Time: Yes Critical care time in (mins) excluding proc time.: 35 Critical care attestation.: If time is entered above; I have spent that time in minutes in the direct care of this critically ill patient, excluding procedure time. ED Disposition Clinical Impression: DKA (diabetic ketoacidosis) Disposition: 09 ADMITTED INPATIENT Is pt being admited?: Yes Does the pt Need Aspirin: No Condition: Fair Instructions: Diabetic Ketoacidosis (ED)
[2021-09-23 17:17] LABS: Mean Corpuscular HGB Conc 30 % (30-34); Mean Corpuscular Volume 103 fl (79-97); Platelet Count 377 K/mm3 (140-440); Red Blood Count 3.57 M/mm3 (3.65-5.03); Red Cell Distribution Width 14.1 % (13.2-15.2)
[2021-09-23 17:36] LABS: Albumin 3.5 g/dL (3.9-5); Calcium 9.3 mg/dL (8.4-10.2)
[2021-09-23 17:37] LABS: Hematocrit 36.7 % (30.3-42.9)
[2021-09-23] MEDS ORDERED: INSULIN REGULAR, HUMAN 100 UNITS/1 ML IV ONE (17:44)
[2021-09-23] MEDS ORDERED: CEFEPIME/NS 2 GM/100 ML 2 GM/100 ML BAG IV ONE (17:45)
[2021-09-23] MEDS ORDERED: D5W/0.45% NACL/KCL 20 MEQ 20 MEQ/1,000 ML BAG IV SCH (18:00)
--- NOTE | 2021-09-23 18:22 | XRay Report ---
XR chest 1V ap INDICATION / CLINICAL INFORMATION: dka COMPARISON: 02/02/2019 FINDINGS: SUPPORT DEVICES: None. HEART / MEDIASTINUM: No significant abnormality. LUNGS / PLEURA: Lungs are clear. Costophrenic sulci are sharp. No pneumothorax. ADDITIONAL FINDINGS: No significant additional findings. IMPRESSION: 1. No acute findings. Signer Name: Malcom Caballero MD Signed: 09/23/2021 6:17 PM Workstation Name: [id number]
[2021-09-23 18:26] LABS: Bilirubin,Urine NEG (Negative); Blood,Urine LG (Negative); Color,Urine Straw (Yellow); Urobilinogen,Urine < 2.0 mg/dL (<2.0)
[2021-09-23 18:32] LABS: Bacteria,Urine 1+ /HPF (Negative); Mucus,Urine FEW /HPF
[2021-09-23 19:00] LABS: Calcium 9.7 mg/dL (8.4-10.2)
[2021-09-23] MEDS: INSULIN REGULAR, HUMAN 100 UNITS in SODIUM CHLORIDE 0.9% 99 ML IV SCH (20:15)
[2021-09-23] MEDS ORDERED: HYDROmorphone 0.5 MG/0.5 ML INJ IV PRN (20:29)
[2021-09-23 21:54] LABS: Anisocytosis 1+; Band Neutrophils # (Manual) 0.7 K/mm3; Basophils % (Manual) 0 % (0.0-1.8); Eosinophils % (Manual) 0 % (0.0-4.3); Macrocytosis 1+; Total Cells Counted 100
[2021-09-23 21:55] LABS: Hypochromasia 1+; Platelet Estimate Consistent w Auto
[2021-09-23] MEDS ORDERED: ACETAMINOPHEN 325 MG TAB PO PRN ×2 (22:04→22:11)
[2021-09-23] MEDS ORDERED: MORPHINE 2 MG/1 ML INJ IV PRN (22:04)
[2021-09-23] MEDS ORDERED: ONDANSETRON 4 MG/2 ML INJ IV PRN (22:11)
[2021-09-23] MEDS ORDERED: METOCLOPRAMIDE 10 MG/2 ML INJ IV PRN (22:18)
[2021-09-23 23:15] LABS: INR 1.23 (0.87-1.13)
[2021-09-24] MEDS: DEXTROSE 5% IN WATER 1,000 ML IV SCH ×3 (03:33→23:23)
[2021-09-24 04:03] LABS: Calcium 9.1 mg/dL (8.4-10.2)
--- NOTE | 2021-09-24 06:28 | History and Physical Report ---
History of Present Illness Date of examination: 09/23/21 Date of admission: 09/23/21 22:05 Chief complaint: Decreased responsiveness for unknown period of time History of present illness: 20-year-old female with history of insulin-dependent diabetes brought to the em ergency room for decreased responsiveness. Patient was found by family at home with decreased responsiveness. Patient has a history of insulin-dependent diabetes and is not taking her insulin for the last 2 days. As per EMS blood glucose level more than 500. No nausea or vomiting. Decreased responsiveness. No fever or chills. Patient is supposed to be on NovoLog 70/30 35 units in the morning and 25 units in the evening. Noncompliant. Patient is on lisinopril for hypertension. - Past Medical History --Hypertension: Yes --Diabetes: Yes -Surgical history none - Social History --Smoking Status: Never Smoker - family history --Htn - Medications Home Medications: Home Medications Medication Instructions Recorded Confirmed Last Taken Type Insulin Aspart Protam & Aspart 25 units SQ QPM 02/02/19 02/02/19 02/02/19 History [NovoLOG Mix 70-30 Flexpen] Insulin Lispro Protamin/Lispro 34 units SQ QAM 02/02/19 02/02/19 02/01/19 Histor y [HumaLOG Mix 75-25 Kwikpen] lisinopriL [Zestril TAB] 10 mg PO QDAY 02/02/19 02/02/19 02/01/19 History Review of Systems ROS: Stated complaint: DKA Other details as noted in HPI Comment: Unobtainable due to pts medical conditions Medications and Allergies Allergies Allergy/AdvReac Type Severity Reaction Status Date / Time No Known Allergies Allergy Verified 09/23/21 15:34 Home Medications Medication Instructions Recorded Confirmed Last Taken Type Insulin Aspart Protam & Aspart 25 units SQ QPM 02/02/19 09/24/21 09/22/21 Hist ory [NovoLOG Mix 70-30 Flexpen] Insulin Lispro Protamin/Lispro 5 units SQ QAM 02/02/19 09/24/21 09/22/21 History [HumaLOG Mix 75-25 Kwikpen] lisinopriL [Zestril TAB] 10 mg PO QDAY 02/02/19 09/24/21 09/10/21 History Active Meds: Active Medications Acetaminophen (Acetaminophen 325 Mg Tab) 650 mg PO Q6H PRN PRN Reason: Pain MILD(1-3)/Fever >100.5/RODRIGUEZ Acetaminophen (Acetaminophen 325 Mg Tab) 650 mg PO Q4H PRN PRN Reason: Pain MILD(1-3)/Fever >100.5/RODRIGUEZ Insulin Human Regular 100 (units/ Sodium Chloride) 100 mls @ 1 mls/hr IV TITR ANA; Protocol Last Titration: 09/24/21 05:45 Dose: 3 units/hr, 3 mls/hr Dextrose (D5w) 1,000 mls @ 125 mls/hr IV DIRECT ANA Last Admin: 09/24/21 03:33 Dose: 125 mls/hr Insulin Glargine (Insulin Glargine 100 Units/Ml) 20 units SUB-Q QHS ANA Metoclopramide HCl (Metoclopramide 10 Mg/2 Ml Inj) 5 mg IV Q6H PRN PRN Reason: Nausea And Vomiting Morphine Sulfate (Morphine 2 Mg/1 Ml Inj) 2 mg IV Q4H PRN PRN Reason: Pain, Moderate (4-6) Ondansetron HCl (Ondansetron 4 Mg/2 Ml Inj) 4 mg IV Q8H PRN PRN Reason: Nausea And Vomiting Sodium Chloride (Sodium Chloride 0.9% 10 Ml Flush Syringe) 10 ml IV BID [facility] Last Admin: 09/24/21 00:48 Dose: 10 ml Sodium Chloride (Sodium Chloride 0.9% 10 Ml Flush Syringe) 10 ml IV PRN PRN PRN Reason: LINE FLUSH Exam - Constitutional Vitals: Temp Pulse Resp BP Pulse Ox 114 H 11 L 135/64 99 09/24/21 06:09 09/24/21 06:09 09/24/21 06:09 09/24/21 06:09 General appearance: Present: mild distress, well-nourished - EENT Eyes: Present: PERRL ENT: hearing intact, clear oral mucosa, other (Dry mucous membranes) - Neck Neck: Present: supple, normal ROM - Respiratory Respiratory effort: normal Respiratory: bilateral: CTA - Cardiovascular Heart rate: 98 Rhythm: irregularly irregular Heart Sounds: Present: S1 & S2. Absent: rub, click - Extremities Extremities: no ischemia, pulses symmetrical, No edema Peripheral Pulses: within normal limits - Abdominal General gastrointestinal: Present: soft, non-tender, non-distended, normal bowel sounds Female genitourinary: Present: normal - Integumentary Integumentary: Present: clear, warm, dry - Musculoskeletal Musculoskeletal: generalized weakness - Psychiatric Psychiatric: other (Decreased responsiveness) - Neurologic Neurologic: CNII-XII intact, moves all extremities - Allied Health Allied health notes reviewed: nursing, case management Results - Labs CBC & Chem 7: 09/23/21 16:38 09/24/21 03:31 Labs: Laboratory Last Values WBC 23.0 K/mm3 (4.5-11.0) H 09/23/21 16:38 RBC 3.57 M/mm3 (3.65-5.03) L 09/23/21 16:38 Hgb 11.0 gm/dl (10.1-14.3) 09/23/21 16:38 Hct 36.7 % (30.3-42.9) 09/23/21 16:38 MCV 103 fl (79-97) H 09/23/21 16:38 MCH 31 pg (28-32) 09/23/21 16:38 MCHC 30 % (30-34) 09/23/21 16:38 RDW 14.1 % (13.2-15.2) 09/23/21 16:38 Plt Count 377 K/mm3 (140-440) 09/23/21 16:38 Add Manual Diff Complete 09/23/21 16:38 Total Counted 100 09/23/21 16:38 Seg Neuts % (Manual) 84.0 % (40.0-70.0) H 09/23/21 16:38 Band Neutrophils % 3.0 % 09/23/21 16:38 Lymphocytes % (Manual) 7.0 % (13.4-35.0) L 09/23/21 16:38 Reactive Lymphs % (Man) 0 % 09/23/21 16:38 Monocytes % (Manual) 6.0 % (0.0-7.3) 09/23/21 16:38 Eosinophils % (Manual) 0 % (0.0-4.3) 09/23/21 16:38 Basophils % (Manual) 0 % (0.0-1.8) 09/23/21 16:38 Metamyelocytes % 0 % 09/23/21 16:38 Myelocytes % 0 % 09/23/21 16:38 Promyelocytes % 0 % 09/23/21 16:38 Blast Cells % 0 % 09/23/21 16:38 Nucleated RBC % Not Reportable 09/23/21 16:38 Seg Neutrophils # Man 19.3 K/mm3 (1.8-7.7) H 09/23/21 16:38 Band Neutrophils # 0.7 K/mm3 09/23/21 16:38 Lymphocytes # (Manual) 1.6 K/mm3 (1.2-5.4) 09/23/21 16:38 Abs React Lymphs (Man) 0.0 K/mm3 09/23/21 16:38 Monocytes # (Manual) 1.4 K/mm3 (0.0-0.8) H 09/23/21 16:38 Eosinophils # (Manual) 0.0 K/mm3 (0.0-0.4) 09/23/21 16:38 Basophils # (Manual) 0.0 K/mm3 (0.0-0.1) 09/23/21 16:38 Metamyelocytes # 0.0 K/mm3 09/23/21 16:38 Myelocytes # 0.0 K/mm3 09/23/21 16:38 Promyelocytes # 0.0 K/mm3 09/23/21 16:38 Blast Cells # 0.0 K/mm3 09/23/21 16:38 WBC Morphology Not Reportable 09/23/21 16:38 Hypersegmented Neuts Not Reportable 09/23/21 16:38 Hyposegmented Neuts Not Reportable 09/23/21 16:38 Hypogranular Neuts Not Reportable 09/23/21 16:38 Smudge Cells Not Reportable 09/23/21 16:38 Toxic Granulation Not Reportable 09/23/21 16:38 Toxic Vacuolation Not Reportable 09/23/21 16:38 Dohle Bodies Not Reportable 09/23/21 16:38 Pelger-Huet Anomaly Not Reportable 09/23/21 16:38 Perez Rods Not Reportable 09/23/21 16:38 Platelet Estimate Consistent w auto 09/23/21 16:38 Clumped Platelets Not Reportable 09/23/21 16:38 Plt Clumps, EDTA Not Reportable 09/23/21 16:38 Large Platelets Not Reportable 09/23/21 16:38 Giant Platelets Not Reportable 09/23/21 16:38 Platelet Satelliting Not Reportable 09/23/21 16:38 Plt Morphology Comment Not Reportable 09/23/21 16:38 RBC Morphology Not Reportable 09/23/21 16:38 Dimorphic RBCs Not Reportable 09/23/21 16:38 Polychromasia Not Reportable 09/23/21 16:38 Hypochromasia 1+ 09/23/21 16:38 Poikilocytosis Not Reportable 09/23/21 16:38 Anisocytosis 1+ 09/23/21 16:38 Microcytosis Not Reportable 09/23/21 16:38 Macrocytosis 1+ 09/23/21 16:38 Spherocytes Not Reportable 09/23/21 16:38 Pappenheimer Bodies Not Reportable 09/23/21 16:38 Sickle Cells Not Reportable 09/23/21 16:38 Target Cells Not Reportable 09/23/21 16:38 Tear Drop Cells Not Reportable 09/23/21 16:38 Ovalocytes Not Reportable 09/23/21 16:38 Helmet Cells Not Reportable 09/23/21 16:38 [place] Bodies Not Reportable 09/23/21 16:38 Bigfoot Rings Not Reportable 09/23/21 16:38 Nita Cells Not Reportable 09/23/21 16:38 Bite Cells Not Reportable 09/23/21 16:38 Crenated Cell Not Reportable 09/23/21 16:38 Elliptocytes Not Reportable 09/23/21 16:38 Acanthocytes (Spur) Not Reportable 09/23/21 16:38 Rouleaux Not Reportable 09/23/21 16:38 Hemoglobin C Crystals Not Reportable 09/23/21 16:38 Schistocytes Not Reportable 09/23/21 16:38 Malaria parasites Not Reportable 09/23/21 16:38 Tin Bodies Not Reportable 09/23/21 16:38 Hem Pathologist Commnt No 09/23/21 16:38 PT 16.9 Sec. (12.2-14.9) H 09/23/21 22:30 INR 1.23 (0.87-1.13) H 09/23/21 22:30 APTT 30.0 Sec. (24.2-36.6) 09/23/21 22:30 Sodium 141 mmol/L (137-145) 09/24/21 03:31 Potassium 5.5 mmol/L (3.6-5.0) H 09/24/21 03:31 Chloride 106.9 mmol/L (98-107) 09/24/21 03:31 Carbon Dioxide 6 mmol/L (22-30) L* 09/24/21 03:31 Anion Gap 34 mmol/L 09/24/21 03:31 BUN 42 mg/dL (7-17) H 09/24/21 03:31 Creatinine 1.5 mg/dL (0.6-1.2) H 09/24/21 03:31 Estimated GFR 54 ml/min 09/24/21 03:31 BUN/Creatinine Ratio 28 % 09/24/21 03:31 Glucose 257 mg/dL (65-100) H 09/24/21 03:31 POC Glucose 255 mg/dL (70-105) H 09/24/21 02:13 Hemoglobin A1c 11.0 % (4-6) H 09/23/21 16:38 Lactic Acid 2.70 mmol/L (0.7-2.0) H* 09/23/21 16:31 Calcium 9.1 mg/dL (8.4-10.2) 09/24/21 03:31 Phosphorus 5.60 mg/dL (2.5-4.5) H D 09/23/21 22:30 Magnesium 3.00 mg/dL (1.7-2.3) H 09/23/21 22:30 Total Bilirubin 0.20 mg/dL (0.1-1.2) 09/23/21 16:31 AST 14 units/L (5-40) 09/23/21 16:31 ALT 8 units/L (7-56) 09/23/21 16:31 Alkaline Phosphatase 162 units/L (35-129) H 09/23/21 16:31 Total Protein 10.1 g/dL (6.3-8.2) H 09/23/21 16:31 Albumin 3.5 g/dL (3.9-5) L 09/23/21 16:31 Albumin/Globulin Ratio 0.5 % 09/23/21 16:31 HCG, Quant < 2 mIU/mL (0-4) 09/23/21 16:38 Urine Color Straw (Yellow) 09/23/21 Unknown Urine Turbidity Slightly-cloudy (Clear) 09/23/21 Unknown Urine pH 5.0 (5.0-7.0) 09/23/21 Unknown Ur Specific [place] 1.014 (1.003-1.030) 09/23/21 Unknown Urine Protein 30 mg/dl mg/dL (Negative) 09/23/21 Unknown Urine Glucose (UA) >=500 mg/dL (Negative) 09/23/21 Unknown Urine Ketones 80 mg/dL (Negative) 09/23/21 Unknown Urine Blood Lg (Negative) 09/23/21 Unknown Urine Nitrite Neg (Negative) 09/23/21 Unknown Urine Bilirubin Neg (Negative) 09/23/21 Unknown Urine Urobilinogen < 2.0 mg/dL (<2.0) 09/23/21 Unknown Ur Leukocyte Esterase Mod (Negative) 09/23/21 Unknown Urine WBC (Auto) 100.0 /HPF (0.0-6.0) H 09/23/21 Unknown Urine RBC (Auto) 14.0 /HPF (0.0-6.0) 09/23/21 Unknown U Epithel Cells (Auto) 4.0 /HPF (0-13.0) 09/23/21 Unknown Urine Bacteria (Auto) 1+ /HPF (Negative) 09/23/21 Unknown Urine Mucus Few /HPF 09/23/21 Unknown Short CBC 09/23/21 Range/Units 16:38 WBC 23.0 H (4.5-11.0) K/mm3 Hgb 11.0 (10.1-14.3) gm/dl Hct 36.7 (30.3-42.9) % Plt Count 377 (140-440) K/mm3 BMP 09/23/21 09/23/21 09/23/21 16:31 18:17 22:30 Sodium 127 L 127 L 138 D Potassium 7.5 H* 7.9 H* 5.3 H D Chloride 87.7 L 81.8 L 100.8 Carbon Dioxide 2 L* 3 L* 4 L* BUN 41 H 43 H 42 H Creatinine 1.8 H 1.9 H 1.7 H Glucose 828 H* 807 H* 509 H* Calcium 9.3 9.7 9.0 09/24/21 03:31 Sodium 141 Potassium 5.5 H Chloride 106.9 Carbon Dioxide 6 L* BUN 42 H Creatinine 1.5 H Glucose 257 H Calcium 9.1 Liver Function 09/23/21 Range/Units 16:31 Total Bilirubin 0.20 (0.1-1.2) mg/dL AST 14 (5-40) units/L ALT 8 (7-56) units/L Alkaline Phosphatase 162 H (35-129) units/L Albumin 3.5 L (3.9-5) g/dL Urine 09/23/21 Range/Units Unknown Urine Color Straw (Yellow) Urine pH 5.0 (5.0-7.0) Ur Specific [place] 1.014 (1.003-1.030) Urine Protein 30 mg/dl (Negative) mg/dL Urine Glucose (UA) >=500 (Negative) mg/dL Gibbons/IV: Voiding Method External Female Catheter Assessment and Plan Assessment and plan: Critical care statement The high probability OF a clinically significant sudden or life-threatening deterioration of the cardiorespiratory system and endocrine system required my full and direct attention, intervention and postoperative management. The aggregate critical care time was 40 minutes. The time is in addition to time spent performing reported procedures but includes the followin: Data review and interpretation 2: Patient assessment and monitoring of vital signs 3: Documentation 4:: Medication orders and management Advance Directives: Yes (Full code) VTE prophylaxis?: Chemical Plan of care discussed with patient/family: Yes - Patient Problems (1) Acute metabolic encephalopathy Current Visit: Yes Status: Acute Plan to address problem: Secondary to high blood glucose levels and metabolic acidosis and electrolyte abnormalities Needs IV insulin and IV fluids and correction of metabolic acidosis and blood glucose levels (2) DKA (diabetic ketoacidosis) Current Visit: Yes Status: Acute Qualifiers: Diabetes mellitus type: type 1 Plan to address problem: DKA protocol IV insulin initiated IV fluids initiated Sodium bicarb as necessary Patient needs a long-acting regimen and short acting regimen AC Diabetes education (3) Metabolic acidosis Current Visit: Yes Status: Acute Plan to address problem: Severe IV/sodium bicarbonate as necessary (4) Hyperkalemia Current Visit: Yes Status: Acute Plan to address problem: IV insulin and IV calcium gluconate (5) Hyponatremia Current Visit: Yes Status: Acute Plan to address problem: Should correct with correction of blood glucose levels (6) WARREN (acute kidney injury) Current Visit: Yes Status: Acute Plan to address problem: Secondary to vasomotor nephropathy IV fluids now Nephrology consult if necessary (7) Urinary tract infection Current Visit: Yes Status: Acute Qualifiers: Urinary tract infection type: acute cystitis Plan to address problem: IV ceftriaxone for now (8) DVT prophylaxis Current Visit: Yes Status: Acute Plan to address problem: On heparin and GI prophylaxis (9) Advance care planning Current Visit: Yes Status: Acute Plan to address problem: Disease education collected, care plan discussed, diagnosis discussed, prognosis discussed. Patient is full code. Patient acknowledges understanding and agreement with care plan. +30 minutes.
[2021-09-24] MEDS ORDERED: SODIUM BICARB 8.4% 50 MEQ/50 ML SYRINGE IV ONE (07:38)
[2021-09-24] MEDS: cefTRIAXone/NS 2 GM/100 ML 2 GM/100 ML BAG IV SCH ×2 (07:42→16:47)
[2021-09-24] MEDS ORDERED: LACTATED RINGERS 1,000 ML IV ONE ×2 (07:45→15:00)
[2021-09-24 11:29] LABS: Hematocrit 30.2 % (30.3-42.9); Hemoglobin 9.8 gm/dl (10.1-14.3); Mean Corpuscular HGB Conc 33 % (30-34); Mean Corpuscular Volume 93 fl (79-97); Platelet Count 321 K/mm3 (140-440); Red Blood Count 3.25 M/mm3 (3.65-5.03); Red Cell Distribution Width 13.4 % (13.2-15.2)
[2021-09-24 11:49] LABS: BUN/Creatinine Ratio 29; Blood Urea Nitrogen 38 mg/dL (7-17); Hemolysis Index 1
--- NOTE | 2021-09-24 12:30 | Consultation ---
History of Present Illness - Reason for Consult Consult date: 09/24/21 DKA - History of Present Illness 20-year-old female with history of insulin-dependent diabetes brought to the emergency room for decreased responsiveness. Patient was found by family at home with decreased responsiveness. Patient has a history of insulin-dependent diabetes and is not taking her insulin for the last 2 days. As per EMS blood glucose level more than 500. No nausea or vomiting. Decreased responsiveness. No fever or chills. Patient is supposed to be on NovoLog 70/30 35 units in the morning and 25 units in the evening. Noncompliant. Patient is on lisinopril for hypertension. This am Gap is still elevated. Flank Pain is better. Renal function continues to improve. A1C is 11 Past History Past Medical History: diabetes, hypertension Medications and Allergies Allergies Allergy/AdvReac Type Severity Reaction Status Date / Time No Known Allergies Allergy Verified 09/23/21 15:34 Home Medications Medication Instructions Recorded Confirmed Last Taken Type Insulin Aspart Protam & Aspart 25 units SQ QPM 02/02/19 09/24/21 09/22/21 History [NovoLOG Mix 70-30 Flexpen] Insulin Lispro Protamin/Lispro 5 units SQ QAM 02/02/19 09/24/21 09/22/21 History [HumaLOG Mix 75-25 Kwikpen] lisinopriL [Zestril TAB] 10 mg PO QDAY 02/02/19 09/24/21 09/10/21 History Active Meds: Active Medications Acetaminophen (Acetaminophen 325 Mg Tab) 650 mg PO Q4H PRN PRN Reason: Pain MILD(1-3)/Fever >100.5/RODRIGUEZ Insulin Human Regular 100 (units/ Sodium Chloride) 100 mls @ 1 mls/hr IV TITR ANA; Protocol Last Titration: 09/24/21 11:50 Dose: 2 units/hr, 2 mls/hr Dextrose (D5w) 1,000 mls @ 125 mls/hr IV DIRECT ANA Last Admin: 09/24/21 03:33 Dose: 125 mls/hr Ceftriaxone Sodium (Rocephin/Ns 2 Gm/100 Ml) 2 gm in 100 mls @ 200 mls/hr IV Q24HR ANA; Protocol Stop: 09/24/21 23:59 Last Admin: 09/24/21 07:42 Dose: 200 mls/hr Ceftriaxone Sodium (Rocephin/Ns 1 Gm/50 Ml) 1 gm in 50 mls @ 100 mls/hr IV Q24HR ANA; Protocol Metoclopramide HCl (Metoclopramide 10 Mg/2 Ml Inj) 5 mg IV Q6H PRN PRN Reason: Nausea And Vomiting Morphine Sulfate (Morphine 2 Mg/1 Ml Inj) 2 mg IV Q4H PRN PRN Reason: Pain, Moderate (4-6) Ondansetron HCl (Ondansetron 4 Mg/2 Ml Inj) 4 mg IV Q8H PRN PRN Reason: Nausea And Vomiting Sodium Chloride (Sodium Chloride 0.9% 10 Ml Flush Syringe) 10 ml IV BID ANA Last Admin: 09/24/21 00:48 Dose: 10 ml Sodium Chloride (Sodium Chloride 0.9% 10 Ml Flush Syringe) 10 ml IV PRN PRN PRN Reason: LINE FLUSH Review of Systems All systems: negative Exam - Constitutional Vitals: Temp Pulse Resp BP Pulse Ox 121 H 17 97/57 99 09/24/21 11:41 09/24/21 11:41 09/24/21 11:41 09/24/21 11:41 General appearance: Present: no acute distress, well-nourished - EENT Eyes: Present: PERRL, EOM intact ENT: hearing intact, clear oral mucosa, dentition normal - Neck Neck: Present: supple, normal ROM - Respiratory Respiratory effort: normal Respiratory: bilateral: CTA Results - Labs CBC & Chem 7: 09/24/21 10:21 09/24/21 10:44 Labs: Abnormal lab results 09/23/21 09/23/21 09/23/21 Range/Units 16:31 16:31 16:38 WBC 23.0 H (4.5-11.0) K/mm3 RBC 3.57 L (3.65-5.03) M/mm3 Hgb (10.1-14.3) gm/dl Hct (30.3-42.9) % MCV 103 H (79-97) fl Seg Neuts % (Manual) 84.0 H (40.0-70.0) % Lymphocytes % (Manual) 7.0 L (13.4-35.0) % Seg Neutrophils # Man 19.3 H (1.8-7.7) K/mm3 Monocytes # (Manual) 1.4 H (0.0-0.8) K/mm3 PT (12.2-14.9) Sec. INR (0.87-1.13) Sodium 127 L (137-145) mmol/L Potassium 7.5 H* (3.6-5.0) mmol/L Chloride 87.7 L (98-107) mmol/L Carbon Dioxide 2 L* (22-30) mmol/L BUN 41 H (7-17) mg/dL Creatinine 1.8 H (0.6-1.2) mg/dL Glucose 828 H* (65-100) mg/dL POC Glucose (70-105) mg/dL Hemoglobin A1c (4-6) % Lactic Acid 2.70 H* (0.7-2.0) mmol/L Phosphorus (2.5-4.5) mg/dL Magnesium (1.7-2.3) mg/dL Alkaline Phosphatase 162 H (35-129) units/L Total Protein 10.1 H (6.3-8.2) g/dL Albumin 3.5 L (3.9-5) g/dL Urine WBC (Auto) (0.0-6.0) /HPF 09/23/21 09/23/21 09/23/21 Range/Units 16:38 18:17 18:17 WBC (4.5-11.0) K/mm3 RBC (3.65-5.03) M/mm3 Hgb (10.1-14.3) gm/dl Hct (30.3-42.9) % MCV (79-97) fl Seg Neuts % (Manual) (40.0-70.0) % Lymphocytes % (Manual) (13.4-35.0) % Seg Neutrophils # Man (1.8-7.7) K/mm3 Monocytes # (Manual) (0.0-0.8) K/mm3 PT (12.2-14.9) Sec. INR (0.87-1.13) Sodium 127 L (137-145) mmol/L Potassium 7.9 H* (3.6-5.0) mmol/L Chloride 81.8 L (98-107) mmol/L Carbon Dioxide 3 L* (22-30) mmol/L BUN 43 H (7-17) mg/dL Creatinine 1.9 H (0.6-1.2) mg/dL Glucose 807 H* (65-100) mg/dL POC Glucose (70-105) mg/dL Hemoglobin A1c 11.0 H (4-6) % Lactic Acid (0.7-2.0) mmol/L Phosphorus 7.50 H (2.5-4.5) mg/dL Magnesium 3.30 H (1.7-2.3) mg/dL Alkaline Phosphatase (35-129) units/L Total Protein (6.3-8.2) g/dL Albumin (3.9-5) g/dL Urine WBC (Auto) (0.0-6.0) /HPF 09/23/21 09/23/21 09/23/21 Range/Units 21:51 22:30 22:30 WBC (4.5-11.0) K/mm3 RBC (3.65-5.03) M/mm3 Hgb (10.1-14.3) gm/dl Hct (30.3-42.9) % MCV (79-97) fl Seg Neuts % (Manual) (40.0-70.0) % Lymphocytes % (Manual) (13.4-35.0) % Seg Neutrophils # Man (1.8-7.7) K/mm3 Monocytes # (Manual) (0.0-0.8) K/mm3 PT 16.9 H (12.2-14.9) Sec. INR 1.23 H (0.87-1.13) Sodium (137-145) mmol/L Potassium (3.6-5.0) mmol/L Chloride (98-107) mmol/L Carbon Dioxide (22-30) mmol/L BUN (7-17) mg/dL Creatinine (0.6-1.2) mg/dL Glucose (65-100) mg/dL POC Glucose 427 H (70-105) mg/dL Hemoglobin A1c (4-6) % Lactic Acid (0.7-2.0) mmol/L Phosphorus 5.60 H D (2.5-4.5) mg/dL Magnesium 3.00 H (1.7-2.3) mg/dL Alkaline Phosphatase (35-129) units/L Total Protein (6.3-8.2) g/dL Albumin (3.9-5) g/dL Urine WBC (Auto) (0.0-6.0) /HPF 09/23/21 09/23/21 09/23/21 Range/Units 22:30 23:14 Unknown WBC (4.5-11.0) K/mm3 RBC (3.65-5.03) M/mm3 Hgb (10.1-14.3) gm/dl Hct (30.3-42.9) % MCV (79-97) fl Seg Neuts % (Manual) (40.0-70.0) % Lymphocytes % (Manual) (13.4-35.0) % Seg Neutrophils # Man (1.8-7.7) K/mm3 Monocytes # (Manual) (0.0-0.8) K/mm3 PT (12.2-14.9) Sec. INR (0.87-1.13) Sodium (137-145) mmol/L Potassium 5.3 H D (3.6-5.0) mmol/L Chloride (98-107) mmol/L Carbon Dioxide 4 L* (22-30) mmol/L BUN 42 H (7-17) mg/dL Creatinine 1.7 H (0.6-1.2) mg/dL Glucose 509 H* (65-100) mg/dL POC Glucose 377 H (70-105) mg/dL Hemoglobin A1c (4-6) % Lactic Acid (0.7-2.0) mmol/L Phosphorus (2.5-4.5) mg/dL Magnesium (1.7-2.3) mg/dL Alkaline Phosphatase (35-129) units/L Total Protein (6.3-8.2) g/dL Albumin (3.9-5) g/dL Urine WBC (Auto) 100.0 H (0.0-6.0) /HPF 09/24/21 09/24/21 09/24/21 Range/Units 00:51 02:13 03:31 WBC (4.5-11.0) K/mm3 RBC (3.65-5.03) M/mm3 Hgb (10.1-14.3) gm/dl Hct (30.3-42.9) % MCV (79-97) fl Seg Neuts % (Manual) (40.0-70.0) % Lymphocytes % (Manual) (13.4-35.0) % Seg Neutrophils # Man (1.8-7.7) K/mm3 Monocytes # (Manual) (0.0-0.8) K/mm3 PT (12.2-14.9) Sec. INR (0.87-1.13) Sodium (137-145) mmol/L Potassium 5.5 H (3.6-5.0) mmol/L Chloride (98-107) mmol/L Carbon Dioxide 6 L* (22-30) mmol/L BUN 42 H (7-17) mg/dL Creatinine 1.5 H (0.6-1.2) mg/dL Glucose 257 H (65-100) mg/dL POC Glucose 325 H 255 H (70-105) mg/dL Hemoglobin A1c (4-6) % Lactic Acid (0.7-2.0) mmol/L Phosphorus (2.5-4.5) mg/dL Magnesium (1.7-2.3) mg/dL Alkaline Phosphatase (35-129) units/L Total Protein (6.3-8.2) g/dL Albumin (3.9-5) g/dL Urine WBC (Auto) (0.0-6.0) /HPF 09/24/21 09/24/21 Range/Units 10:21 10:44 WBC 15.1 H (4.5-11.0) K/mm3 RBC 3.25 L (3.65-5.03) M/mm3 Hgb 9.8 L (10.1-14.3) gm/dl Hct 30.2 L D (30.3-42.9) % MCV (79-97) fl Seg Neuts % (Manual) (40.0-70.0) % Lymphocytes % (Manual) (13.4-35.0) % Seg Neutrophils # Man (1.8-7.7) K/mm3 Monocytes # (Manual) (0.0-0.8) K/mm3 PT (12.2-14.9) Sec. INR (0.87-1.13) Sodium (137-145) mmol/L Potassium (3.6-5.0) mmol/L Chloride 109.6 H (98-107) mmol/L Carbon Dioxide 14 L D (22-30) mmol/L BUN 38 H (7-17) mg/dL Creatinine 1.3 H (0.6-1.2) mg/dL Glucose 154 H (65-100) mg/dL POC Glucose (70-105) mg/dL Hemoglobin A1c (4-6) % Lactic Acid (0.7-2.0) mmol/L Phosphorus (2.5-4.5) mg/dL Magnesium (1.7-2.3) mg/dL Alkaline Phosphatase (35-129) units/L Total Protein (6.3-8.2) g/dL Albumin (3.9-5) g/dL Urine WBC (Auto) (0.0-6.0) /HPF - Imaging and Cardiology Chest x-ray: image reviewed Assessment and Plan 20 y/o female with DKA and HTN 1. NPO 2. IV abx therapy for UTI 3. IV fluids with saline until blood sugar is less than 250 then switch to D5 or D5 with K 4. Continue IV insulin infusion with q1hour FSBS 5. Blood pressure control 6. Continue to follow renal function CCT 31 minutes.
[2021-09-24] MEDS ORDERED: hydrALAZINE 20 MG/1 ML INJ IV PRN (14:07)
--- NOTE | 2021-09-24 14:33 | Progress Note ---
Assessment and Plan Assessment and plan: This is a 20 year old with IDDM and HTN admitted with DKA, WARREN and UTI Neuro: NAD -Reorientation as needed -Maintain sleep-wake cycle -As needed analgesia Cardiac: h/o HTN -Hold home lisinopril in setting of WARREN -PRN Hydral IV -Blood pressure monitoring per protocol Respiratory: NAD -Pulmonary hygiene -Supplemental oxygen as needed -SPO2 monitoring GI: NAD -24 hours +13 mL -PPI -NPO -CC diet when AG closes : Acute kidney injury likely secondary to vasomotor nephropathy, hyperkalemia (resolved), hyponatremia (resolved), high anion gap metabolic acidosis (improving) -Presented with a potassium of 7.5, sodium 127, CO2 2 on BMP, anion gap 45, BUN/creatinine 1.8/41 -Monitor intake and output -Renally dose medications -Avoid nephrotoxic medications -Trend BMP per protocol ID: Sepsis with UTI, lactic acidosis -Presented with leukocytosis, tachycardia, acute kidney injury, UTI and UA -Patient stated that she had malodorous urine and flank pain prior to admission -Antibiotic therapy with Rocephin -f/u urine culture -Monitor WBC and temperature curve -s/p 3 L in ED -1 liter this AM, 1 liter this pm -Trend lactic acid Endo: DKA, h/o IDDM -Presented with anion gap of 45, blood glucose of 828, urinary ketones -Avoid hypoglycemia -Insuling gtt -Hemoglobin A1c 11 -Accu-Cheks per protocol -We will transition to SSI and long-acting insulin when anion gap closed -We will start CC diet when anion gap closed Heme: Leukocytosis -Trend CBC -Transfuse hemoglobin less than 7 -SCDs to BLE while in bed The high probability of a clinically significant, sudden or life threatening deterioration of the [endo] system(s) required my full and direct attention, intervention and personal management. The aggregate critical care time was [60] minutes. This time is in addition to time spent performing reported procedures but includes the following: [x] Data Review and interpretation [x] Patient assessment and monitoring of vital signs [x] Documentation [x] Medication orders and management Disposition Plan: icu Total Time Spent with Patient (Minutes): 60 History Interval history: This is a 20 year old with IDDM and HTN who presented to the ER on 09/23 for decreased responsiveness via EMS who reported BG >500. Work up in the ED revealed tachycardia, hyperkalemia, leukocytosis and acute kidney injury and UA showed pyuria and mod LE. She was admitted to the hospitalist service with consults to [facility] for DKA, WARREN and UTI. Hospital course to date: 09/24: AM BMP shows AG still open, Patient states she had flank and side pain the day of admit and had malodorous urine prior to admit. Patient remains on insulin and abx therapy. Renal function, potassium and leukocytosis is improving. Hospitalist Physical - Constitutional Vitals: Temp Pulse Resp BP Pulse Ox 107 H 14 106/64 99 09/24/21 14:11 09/24/21 14:11 09/24/21 14:11 09/24/21 14:11 General appearance: Present: no acute distress, well-nourished - EENT Eyes: Present: PERRL, EOM intact ENT: hearing intact, clear oral mucosa, dentition normal - Neck Neck: Present: normal ROM - Respiratory Respiratory effort: normal Respiratory: bilateral: CTA - Cardiovascular Rhythm: regular Heart Sounds: Present: S1 & S2. Absent: systolic murmur, diastolic murmur - Extremities Extremities: no ischemia, pulses intact, pulses symmetrical, No edema, normal temperature, normal color, Full ROM Peripheral Pulses: within normal limits - Abdominal General gastrointestinal: soft, non-tender, normal bowel sounds - Integumentary Integumentary: Present: warm, dry - Psychiatric Psychiatric: cooperative - Neurologic Neurologic: CNII-XII intact, no focal deficits, moves all extremities - Allied Health Allied health notes reviewed: nursing, RT, social work Results - Labs CBC & Chem 7: 09/24/21 10:21 09/24/21 10:44 Labs: Laboratory Last Values WBC 15.1 K/mm3 (4.5-11.0) H 09/24/21 10:21 RBC 3.25 M/mm3 (3.65-5.03) L 09/24/21 10:21 Hgb 9.8 gm/dl (10.1-14.3) L 09/24/21 10:21 Hct 30.2 % (30.3-42.9) L D 09/24/21 10:21 MCV 93 fl (79-97) 09/24/21 10:21 MCH 30 pg (28-32) 09/24/21 10:21 MCHC 33 % (30-34) 09/24/21 10:21 RDW 13.4 % (13.2-15.2) 09/24/21 10:21 Plt Count 321 K/mm3 (140-440) 09/24/21 10:21 Add Manual Diff Complete 09/23/21 16:38 Total Counted 100 09/23/21 16:38 Seg Neuts % (Manual) 84.0 % (40.0-70.0) H 09/23/21 16:38 Band Neutrophils % 3.0 % 09/23/21 16:38 Lymphocytes % (Manual) 7.0 % (13.4-35.0) L 09/23/21 16:38 Reactive Lymphs % (Man) 0 % 09/23/21 16:38 Monocytes % (Manual) 6.0 % (0.0-7.3) 09/23/21 16:38 Eosinophils % (Manual) 0 % (0.0-4.3) 09/23/21 16:38 Basophils % (Manual) 0 % (0.0-1.8) 09/23/21 16:38 Metamyelocytes % 0 % 09/23/21 16:38 Myelocytes % 0 % 09/23/21 16:38 Promyelocytes % 0 % 09/23/21 16:38 Blast Cells % 0 % 09/23/21 16:38 Nucleated RBC % Not Reportable 09/23/21 16:38 Seg Neutrophils # Man 19.3 K/mm3 (1.8-7.7) H 09/23/21 16:38 Band Neutrophils # 0.7 K/mm3 09/23/21 16:38 Lymphocytes # (Manual) 1.6 K/mm3 (1.2-5.4) 09/23/21 16:38 Abs React Lymphs (Man) 0.0 K/mm3 09/23/21 16:38 Monocytes # (Manual) 1.4 K/mm3 (0.0-0.8) H 09/23/21 16:38 Eosinophils # (Manual) 0.0 K/mm3 (0.0-0.4) 09/23/21 16:38 Basophils # (Manual) 0.0 K/mm3 (0.0-0.1) 09/23/21 16:38 Metamyelocytes # 0.0 K/mm3 09/23/21 16:38 Myelocytes # 0.0 K/mm3 09/23/21 16:38 Promyelocytes # 0.0 K/mm3 09/23/21 16:38 Blast Cells # 0.0 K/mm3 09/23/21 16:38 WBC Morphology Not Reportable 09/23/21 16:38 Hypersegmented Neuts Not Reportable 09/23/21 16:38 Hyposegmented Neuts Not Reportable 09/23/21 16:38 Hypogranular Neuts Not Reportable 09/23/21 16:38 Smudge Cells Not Reportable 09/23/21 16:38 Toxic Granulation Not Reportable 09/23/21 16:38 Toxic Vacuolation Not Reportable 09/23/21 16:38 Dohle Bodies Not Reportable 09/23/21 16:38 Pelger-Huet Anomaly Not Reportable 09/23/21 16:38 Perez Rods Not Reportable 09/23/21 16:38 Platelet Estimate Consistent w auto 09/23/21 16:38 Clumped Platelets Not Reportable 09/23/21 16:38 Plt Clumps, EDTA Not Reportable 09/23/21 16:38 Large Platelets Not Reportable 09/23/21 16:38 Giant Platelets Not Reportable 09/23/21 16:38 Platelet Satelliting Not Reportable 09/23/21 16:38 Plt Morphology Comment Not Reportable 09/23/21 16:38 RBC Morphology Not Reportable 09/23/21 16:38 Dimorphic RBCs Not Reportable 09/23/21 16:38 Polychromasia Not Reportable 09/23/21 16:38 Hypochromasia 1+ 09/23/21 16:38 Poikilocytosis Not Reportable 09/23/21 16:38 Anisocytosis 1+ 09/23/21 16:38 Microcytosis Not Reportable 09/23/21 16:38 Macrocytosis 1+ 09/23/21 16:38 Spherocytes Not Reportable 09/23/21 16:38 Pappenheimer Bodies Not Reportable 09/23/21 16:38 Sickle Cells Not Reportable 09/23/21 16:38 Target Cells Not Reportable 09/23/21 16:38 Tear Drop Cells Not Reportable 09/23/21 16:38 Ovalocytes Not Reportable 09/23/21 16:38 Helmet Cells Not Reportable 09/23/21 16:38 Martinez-Holmen Bodies Not Reportable 09/23/21 16:38 [place] Rings Not Reportable 09/23/21 16:38 [place] Cells Not Reportable 09/23/21 16:38 Bite Cells Not Reportable 09/23/21 16:38 Crenated Cell Not Reportable 09/23/21 16:38 Elliptocytes Not Reportable 09/23/21 16:38 Acanthocytes (Spur) Not Reportable 09/23/21 16:38 Rouleaux Not Reportable 09/23/21 16:38 Hemoglobin C Crystals Not Reportable 09/23/21 16:38 Schistocytes Not Reportable 09/23/21 16:38 Malaria parasites Not Reportable 09/23/21 16:38 Tin Bodies Not Reportable 09/23/21 16:38 Hem Pathologist Commnt No 09/23/21 16:38 PT 16.9 Sec. (12.2-14.9) H 09/23/21 22:30 INR 1.23 (0.87-1.13) H 09/23/21 22:30 APTT 30.0 Sec. (24.2-36.6) 09/23/21 22:30 Sodium 142 mmol/L (137-145) 09/24/21 10:44 Potassium 4.2 mmol/L (3.6-5.0) D 09/24/21 10:44 Chloride 109.6 mmol/L (98-107) H 09/24/21 10:44 Carbon Dioxide 14 mmol/L (22-30) L D 09/24/21 10:44 Anion Gap 23 mmol/L 09/24/21 10:44 BUN 38 mg/dL (7-17) H 09/24/21 10:44 Creatinine 1.3 mg/dL (0.6-1.2) H 09/24/21 10:44 Estimated GFR > 60 ml/min 09/24/21 10:44 BUN/Creatinine Ratio 29 % 09/24/21 10:44 Glucose 154 mg/dL (65-100) H 09/24/21 10:44 POC Glucose 255 mg/dL (70-105) H 09/24/21 02:13 Hemoglobin A1c 11.0 % (4-6) H 09/23/21 16:38 Lactic Acid 2.70 mmol/L (0.7-2.0) H* 09/23/21 16:31 Calcium 9.0 mg/dL (8.4-10.2) 09/24/21 10:44 Phosphorus 5.60 mg/dL (2.5-4.5) H D 09/23/21 22:30 Magnesium 3.00 mg/dL (1.7-2.3) H 09/23/21 22:30 Total Bilirubin 0.20 mg/dL (0.1-1.2) 09/23/21 16:31 AST 14 units/L (5-40) 09/23/21 16:31 ALT 8 units/L (7-56) 09/23/21 16:31 Alkaline Phosphatase 162 units/L (35-129) H 09/23/21 16:31 Total Protein 10.1 g/dL (6.3-8.2) H 09/23/21 16:31 Albumin 3.5 g/dL (3.9-5) L 09/23/21 16:31 Albumin/Globulin Ratio 0.5 % 09/23/21 16:31 HCG, Quant < 2 mIU/mL (0-4) 09/23/21 16:38 Urine Color Straw (Yellow) 09/23/21 Unknown Urine Turbidity Slightly-cloudy (Clear) 09/23/21 Unknown Urine pH 5.0 (5.0-7.0) 09/23/21 Unknown Ur Specific [place] 1.014 (1.003-1.030) 09/23/21 Unknown Urine Protein 30 mg/dl mg/dL (Negative) 09/23/21 Unknown Urine Glucose (UA) >=500 mg/dL (Negative) 09/23/21 Unknown Urine Ketones 80 mg/dL (Negative) 09/23/21 Unknown Urine Blood Lg (Negative) 09/23/21 Unknown Urine Nitrite Neg (Negative) 09/23/21 Unknown Urine Bilirubin Neg (Negative) 09/23/21 Unknown Urine Urobilinogen < 2.0 mg/dL (<2.0) 09/23/21 Unknown Ur Leukocyte Esterase Mod (Negative) 09/23/21 Unknown Urine WBC (Auto) 100.0 /HPF (0.0-6.0) H 09/23/21 Unknown Urine RBC (Auto) 14.0 /HPF (0.0-6.0) 09/23/21 Unknown U Epithel Cells (Auto) 4.0 /HPF (0-13.0) 09/23/21 Unknown Urine Bacteria (Auto) 1+ /HPF (Negative) 09/23/21 Unknown Urine Mucus Few /HPF 09/23/21 Unknown Gibbons/IV: Voiding Method External Female Catheter Active Medications - Current Medications Current Medications: Generic Name Dose Route Start Last Admin Trade Name Freq PRN Reason Stop Dose Admin Acetaminophen 650 mg 09/23/21 22:11 Acetaminophen 325 Mg Tab PO Q4H PRN Pain MILD(1-3)/Fever >100.5/RODRIGUEZ Hydralazine HCl 10 mg 09/24/21 14:07 Hydralazine 20 Mg/1 Ml Inj IV Q4HR PRN Hypertension Insulin Human Regular 100 100 mls @ 1 mls/hr 09/23/21 18:00 09/24/21 13:53 units/ Sodium Chloride IV 6 units/hr TITR ANA 6 mls/hr Titration Protocol 1 UNITS/HR Dextrose 1,000 mls @ 125 mls/hr 09/23/21 23:00 09/24/21 03:33 D5w IV 125 mls/hr DIRECT ANA Administration Ceftriaxone Sodium 2 gm in 100 mls @ 200 mls/hr 09/24/21 06:40 09/24/21 07:42 Rocephin/Ns 2 Gm/100 Ml IV 09/24/21 23:59 200 mls/hr Q24HR ANA Administration Protocol Ceftriaxone Sodium 1 gm in 50 mls @ 100 mls/hr 09/25/21 10:00 Rocephin/Ns 1 Gm/50 Ml IV Q24HR ANA Protocol Metoclopramide HCl 5 mg 09/23/21 22:18 Metoclopramide 10 Mg/2 Ml Inj IV Q6H PRN Nausea And Vomiting Morphine Sulfate 2 mg 09/23/21 22:04 Morphine 2 Mg/1 Ml Inj IV Q4H PRN Pain, Moderate (4-6) Ondansetron HCl 4 mg 09/23/21 22:11 Ondansetron 4 Mg/2 Ml Inj IV Q8H PRN Nausea And Vomiting Sodium Chloride 10 ml 09/23/21 23:00 09/24/21 00:48 Sodium Chloride 0.9% 10 Ml Flush Syringe IV 10 ml BID ANA Administration Sodium Chloride 10 ml 09/23/21 22:04 Sodium Chloride 0.9% 10 Ml Flush Syringe IV PRN PRN LINE FLUSH
[2021-09-24] MEDS: INSULIN REGULAR, HUMAN 100 UNITS in SODIUM CHLORIDE 0.9% 99 ML IV SCH (16:42)
[2021-09-24 17:22] LABS: BUN/Creatinine Ratio TNR; Blood Urea Nitrogen TNR mg/dL (7-17); Calcium TNR mg/dL (8.4-10.2)
[2021-09-24 17:23] LABS: Hemolysis Index TNR
[2021-09-24] MEDS ORDERED: INSULIN GLARGINE 100 UNITS/ML SUB-Q SCH (22:00)
[2021-09-25 00:13] LABS: BUN/Creatinine Ratio 25; Blood Urea Nitrogen 25 mg/dL (7-17); Calcium 8.8 mg/dL (8.4-10.2); Hemolysis Index 0
[2021-09-25 05:33] LABS: Hematocrit 29.2 % (30.3-42.9); Hemoglobin 9.7 gm/dl (10.1-14.3); Mean Corpuscular HGB Conc 33 % (30-34); Mean Corpuscular Volume 92 fl (79-97); Platelet Count 308 K/mm3 (140-440); Red Blood Count 3.18 M/mm3 (3.65-5.03); Red Cell Distribution Width 13.5 % (13.2-15.2)
[2021-09-25 05:54] LABS: Alanine Aminotransferase 5 units/L (7-56); Albumin 2.8 g/dL (3.9-5); BUN/Creatinine Ratio 19; Blood Urea Nitrogen 21 mg/dL (7-17); Hemolysis Index 25
[2021-09-25] MEDS ORDERED: DEXTROSE 50% IN WATER (25GM) 50 ML SYRINGE IV PRN (07:20)
[2021-09-25] MEDS ORDERED: INSULIN GLARGINE 100 UNITS/ML SUB-Q SCH ×2 (08:00)
[2021-09-25] MEDS ORDERED: POTASSIUM PHOSPHATE 30 MMOL in SODIUM CHLORIDE 0.9% 500 ML 500 ML IV SCH (08:00)
[2021-09-25] MEDS: INSULIN LISPRO 100 UNIT/ML SUB-Q SCH ×2 (08:00→12:07)
[2021-09-25] MEDS ORDERED: cefTRIAXone/NS 1 GM/50 ML 1 GM/50 ML BAG IV SCH (10:00)
--- NOTE | 2021-09-25 11:32 | Discharge Summary ---
Providers - Providers Date of Admission: 09/23/21 22:05 Date of discharge: 09/25/21 Attending physician: BERTA MARINA MD 09/23/21 22:05 Consult to Dietitian/Nutrition [CONS] Routine Physician Instructions: Reason For Exam: Reason for Consult: Diet education Consult to Physician [CONS] Routine Comment: Consulting Provider: WILL SANCHEZ Physician Instructions: Reason For Exam: DKA 09/23/21 22:18 Consult to Physician [CONS] Routine Comment: Consulting Provider: VICKEY KINGSLEY Physician Instructions: Reason For Exam: DKA Primary care physician: ELIZABETH PORTILLO Hospitalization Condition: Stable Hospital course: This is a 20 year old with IDDM and HTN who presented to the ER on 09/23 for decreased responsiveness via EMS who reported BG >500. Work up in the ED revealed tachycardia, hyperkalemia, leukocytosis and acute kidney injury and UA showed pyuria and moderate leukocyte esterase. She was admitted to the hosp italist service with consults to [facility] for DKA, WARREN and UTI. On 09/24 stated she had flank and side pain the day of admit and had malodorous urine prior to admit and lab work noted to be improving. Patient was transitioned to long acting insulin, sliding scale insulin, started on a consistent carbohydrate diet and potassium and phosphate repleted with KPhos IV. Patient will discharge home to continue self care. She will need to follow up with her primary care physician within 1-2 weeks of discharge. She will be discharged with antibiotics therapy for her urinary tract infection. Assessment and plan: Cardiac: h/o HTN -Continue home lisinopril -Follow up with primary care physician -Blood pressure monitoring per PCP instructions : Acute kidney injury likely secondary to vasomotor nephropathy, hyperkalemia (resolved), hyponatremia (resolved), metabolic acidosis (improved), Hypokalemia, hypophosphatemia -Presented with a potassium of 7.5, sodium 127, CO2 2 on BMP, anion gap 45, BUN/creatinine 1.8/41 -K 3.4, Phos 1.6 today -Repleted ID: Sepsis with UTI, lactic acidosis (resolved) -Presented with leukocytosis, tachycardia, acute kidney injury, UTI and UA -Patient stated that she had malodorous urine and flank pain prior to admission -Antibiotic therapy with Rocephin while inpatient, will be discharged with bactrium for 3 days -s/p 5 L IV fluid Endo: DKA (resolved), h/o IDDM -Presented with anion gap of 45, blood glucose of 828, urinary ketones -Avoid hypoglycemia -s/p Insulin gtt -Hemoglobin A1c 11 -Blood glucose monitoring per PC instructions -transitioned to SSI and long-acting insulin -Continue consistent carbohydrate diet -Strict adherence to medical management for IDDM strongly encouraged Heme: Leukocytosis (improving) -Complete antibiotic course Disposition: HOME / SELF CARE / HOMELESS Final Discharge Diagnosis (Prints w/discharge instructions): DKA (resolved), UTI, hypokalemia, hypophosphatemia Time spent for discharge: 60 Core Measure Documentation - Palliative Care Palliative Care/ Comfort Measures: Not Applicable - Core Measures Any of the following diagnoses?: none Exam - Constitutional Vitals: Temp Pulse Resp BP Pulse Ox 100.1 F H 109 H 14 103/65 97 09/25/21 08:15 09/25/21 11:00 09/25/21 11:00 09/25/21 11:00 09/25/21 11:00 General appearance: Present: no acute distress - EENT Eyes: Present: EOM intact ENT: hearing intact, clear oral mucosa, dentition normal - Neck Neck: Present: normal ROM - Respiratory Respiratory effort: normal Respiratory: bilateral: CTA - Cardiovascular Rhythm: regular Heart Sounds: Present: S1 & S2. Absent: systolic murmur - Extremities Extremities: no ischemia, pulses intact, pulses symmetrical, No edema, normal temperature, normal color, Full ROM Peripheral Pulses: within normal limits - Abdominal General gastrointestinal: Present: soft, non-tender, non-distended, normal bowel sounds - Integumentary Integumentary: Present: warm, dry - Musculoskeletal Musculoskeletal: strength equal bilaterally - Psychiatric Psychiatric: appropriate mood/affect, cooperative - Neurologic Neurologic: CNII-XII intact, no focal deficits, moves all extremities - Allied Health Allied health notes reviewed: nursing, RT, social work Plan Additional Instructions: You were admitted for diabetic ketoacidosis. You were on insulin drip and transitioned to sign scale insulin and long-acting insulin. Your electrolytes were also corrected. He also had a urinary tract infection. You will be discharged with 3 days of antibiotics twice a day. You want to continue these antibiotics until they are done. You need to follow-up with a primary care physician within 1 to 2 weeks of discharge. Medical compliance strongly encouraged. You will be discharged with Lantus. Continue your sliding scale insulin and monitor your blood sugar as your primary care physician has instructed. Present to your nearest emergency department or contact your primary care physician if you have worsening symptoms. Follow up with: ELIZABETH PORTILLO MD [Primary Care Provider] - 7 Days Prescriptions: Sulfamethoxazole/Trimethoprim [Bactrim DS TAB] 1 each PO BID #6 Insulin Glargine [Lantus VIAL] 30 units SUB-Q QAMDIAB #1 vial
[2021-09-25 14:32] VITALS: BP 113/76
[2021-09-25] MEDS ORDERED: HEPARIN 5,000 UNIT/1 ML VIAL SUB-Q SCH (22:00)
== END 2021-09-25 15:30 | disposition home or self-care (01) | DRG 871 ==
LOC: ED 15:31 → CC1 22:05
PROVIDERS: ADMIT Internal Medicine; ATTEND Internal Medicine
DX: A41.9 Sepsis, unspecified organism (principal); E11.10 Type 2 diabetes mellitus with ketoacidosis without coma; G93.41 Metabolic encephalopathy; N17.0 Acute kidney failure with tubular necrosis; I10 Essential (primary) hypertension; E87.5 Hyperkalemia; E87.1 Hypo-osmolality and hyponatremia; N39.0 Urinary tract infection, site not specified; E87.6 Hypokalemia; E11.649 Type 2 diabetes mellitus with hypoglycemia without coma
CPT/HCPCS: 36415; 71045; 80048; 80053; 81001; 82140; 82962; 83036; 83735; 84100; 84702; 85007; 85025; 85027; 85610; 85730; 87086; G0378; J7510; Q9967; J0692; J0696; J1170; J1815; J7030; J7040; J7070; J7120